=== PATIENT | male | born 1980 | race Caucasian/White ===

== ENCOUNTER 2024-10-14 09:04 | Outpatient (OUT) | payer MEDICAID, SELFPAY ==
--- OUTSIDE RECORDS SUMMARY | 2024-10-14 09:10 | XMS_ITS | Encounter Summary ---
Author Organization [facility] Address [address] [place] [address] Care Team Providers Care Sonographer Name Role Phone Cady Hilliard MD Primary Care Provider [phone] Source Comments In the event this information is protected by the Federal Confidentiality of Alcohol and Drug AbusePatient Records regulations: The Federal rules restrict any use of the information to criminally investigate or prosecute any alcohol or drug abuse patient.[facility] Encounter Details Date Type Department Care Team (Late st Contact Info) Description 09/28/2022 Patient Msg Gastroenterology [address] [id number] Sherly Bravo, Research Coordinator [id number] Treatment of Pruritus (Itching) in Primary Sclerosing Cholangitis Patients with Volixibat Social History Tobacco Use Types Packs/Day Years Used Date Smoking Tobacco: Never Passive Smoke Exposure: Never Smokeless Tobacco: Never Alcohol Use Standard Drinks/Week Comments Never 0 (1 standard drink = 0.6 oz pur e alcohol) Area Deprivation Index Answer Date Rahat rded National Score (1-100), lower number is lower ri sk 92 09/16/2022 State Score (1-10), lower number is lower risk 9 09/16/2022 Data from: https://www.neighborhoodatlas.medicine.[facility].edu/. Last address used for calculation [address] [facility] 09/16/2022 Sex and Gender Information Value Date Recorded Sex Assigned at Not on file Legal Sex Male 8:03 AM EST Gender Identity Not on file Sexual Orientation Not on file Occupation Industry Job Start Date Job End Date contractor Not on file Not on file Not on file documented as of this encounter Plan of Treatment Not on file documented as of this encounter Visit Diagnoses Not on filedocumented in this encounter Care Teams Sonographer Relationship Specialty Start Date End Date Cady Hilliard MD PCP - General Gastroenterology 06/17/22 documented as of this encounter
--- OUTSIDE RECORDS SUMMARY | 2024-10-14 09:10 | XMS_ITS | Encounter Summary ---
Author Organization [facility] Address [address] [place] [address] Care Team Providers Care Environmental Protection Specialist Name Role Phone Cady Hilliard MD Primary Care Provider [phone] Source Comments In the event this information is protected by the Federal Confidentiality of Alcohol and Drug AbusePatient Records regulations: The Federal rules restrict any use of the information to criminally investigate or prosecute any alcohol or drug abuse patient.[facility] Encounter Details Date Type Department Care Team (Late st Contact Info) Description 12/16/2022 Patient Msg Dermatology [place] [address] [place] [id number] Tonya Marie MD [address] [place] [address] treatment of hives Social History Tobacco Use Types Packs/Day Years [...] is lower risk 9 09/16/2022 Data from: https://www.neighborhoodatlas.medicine.[facility].edu/. Last address used for calculation [address] 09/16/2022 Sex and Gender Information Value Date [...] documented as of this encounter Visit Diagnoses Diagnosis Cholinergic urticaria- Primary documented in this encounter Care Teams Environmental Protection Specialist Relationship Specialty Start Date End Date Cady Hilliard MD PCP - General Gastroenterology 06/17/22 documented as of this encounter
--- OUTSIDE RECORDS SUMMARY | 2024-10-14 09:10 | XMS_ITS | Encounter Summary ---
Author Organization [facility] Address [address] [place] [address] Care Team Providers Care Welder Shielded Metal Arc Name Role Phone Cady Hilliard MD Primary Care Provider [phone] Source Comments In the event this information is protected by the Federal Confidentiality of Alcohol and Drug AbusePatient Records regulations: The Federal rules restrict any use of the information to criminally investigate or prosecute any alcohol or drug abuse patient.[facility] Encounter Details Date Type Department Care Team (Late st Contact Info) Description 09/15/2022 Patient Msg Gastroenterology [address] [phone] Provider, Ccf Appointment reminder Social History Tobacco Use Types Packs/Day Years [...] is lower risk 9 09/16/2022 Data from: https://www.neighborhoodatlas.medicine.[facility]/. Last address used for calculation [address] [facility] 09/16/2022 Sex and Gender Information Value Date [...] on filedocumented in this encounter Care Teams Welder Shielded Metal Arc Relationship Specialty Start Date End Date Cady Hilliard MD PCP - General Gastroenterology 06/17/22 documented as of this encounter
--- OUTSIDE RECORDS SUMMARY | 2024-10-14 09:11 | XMS_ITS | Clinical Summary ---
Author Organization [facility] Address [address] [place] [address] Care Team Providers Care Model Technician Name Role Phone Unavailable Primary Care Provider Unavailabl e Allergies Active Allergy Reactions Criticality Noted Date Comments Iodinated Contrast Media 10/01/2020 Iodine Unknown 06/11/2022 Tamsulosin Unknown 06/30/2022 Medications albuterol (Proventil) 2 MG tablet Take 2 mg by mouth in the morning and 2 mg in the evening and 2 mg before bedtime. Active ursodiol (Actigall) 300 MG capsule Take 300 mg by mouth in the morning and 300 mg before bedtime. Active polyethylene glycol, PEG, 3350 (Glycolax) 17 GM/SCOOP powder Take by mouth Active plecanatide (Trulance) tablet tablet Active senna-docusate (Andie-Colace) 8.6-50 MG tablet Take 1 tablet by mouth Daily Active cholestyramine (Questran) 4 g packet Take 1 packet by mouth in the morning and 1 packet at noon and 1 packet in the evening. Take with meals. Active omega-3 (FISH OIL) 300 MG capsule Take by mouth Daily Active polyethylene glycol, PEG, 3350 (Miralax) 17 g packet Take by mouth. Active predniSONE (Deltasone) 10 MG tabletIndicatio ns:Plantar fasciitis, right,Inflammat ory heel pain, right,Calcaneal spur, right,Difficult y walking 1 tablet twice daily x 7 days; followed by 1 tablet daily as directed until complete 21 tablet 09/03/2024 Active meloxicam (Mobic) 15 MG tabletIndicatio ns:Plantar fasciitis, right,Inflammat ory heel pain, right,Calcaneal spur, right,Difficult y walking Take 1 tablet (15 mg) by mouth in the morning. Take with meals. 1 tablet once daily with food as needed for comfort. 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 Encounters Date Type Department Care Team Description 09/25/2024 9:45 AM EDT Office Visit [facility] [address] [place] [address] Gagan Vicente DPM Plantar fasciitis, right (Primary Dx); Inflammatory heel pain, right; Calcaneal spur, right; Difficulty walking 09/25/2024 Abstract [facility] [address] [place] [address] Gagan Vicente, LITA 09/25/2024 Bamboo flowsheet [facility] [address] [place] [address] Gagan Vicente, [place] 09/25/2024 Travel 09/24/2024 Travel 09/03/2024 2:25 PM EDT Ancillary Procedure [facility] [address] [place] [address] 09/03/2024 1:45 PM EDT Office Visit [facility] [address] [place] [address] Gagan Vicente DPM Plantar fasciitis, right (Primary Dx); Inflammatory heel pain, right; Calcaneal spur, right; Difficulty walking 09/03/2024 Bamboo flowsheet [facility] [address] [place] [address] Gagan Vicente, [place] 09/03/2024 Travel 09/02/2024 Travel 08/30/2024 Travel from Last 3 Months Family History Medical History Relation Name Comments Diabetes Brother brother Asthma Father dad Hearing loss Father dad Arthritis Mother mom Heart disease Mother mom Hypertension Mother mom Relation Name Status Comments Brother brother Alive Father dad Alive Mother mom Alive Social History Tobacco Use Types Packs/Day Years Used Date Smoking Tobacco: Never Smokeless Tobacco: Never Tobacco Cessation:Counseling Given: Not Answered Alcohol Use Standard Drinks/Week Comments Never 0 (1 standard drink = 0.6 oz pur e alcohol) Sex and Gender Information Value Date Recorded Sex Assigned at Not on file Legal Sex Male 9:27 PM EDT Gender Identity Not on file Sexual Orientation Not on file Last Filed Vital Signs Vital Sign Reading Time Taken Comments Blood Pressure 99/58 06/14/2018 12:00 PM EST Pulse - - Temperature - - Respiratory Rate - - Oxygen Saturation - - Inhaled Oxygen Concentration - - Weight 68.9 kg (152 lb) 09/25/2024 9:49 AM EDT Height 172.7 cm (5' 8 ) 09/25/2024 9:49 AM EDT Body Mass Index 23.11 09/25/2024 9:49 AM EDT Plan of Treatment Upcoming Encounters Date Type Department Care Team (Late st Contact Info) Description 10/16/2024 2:45 PM EDT Office Visit [facility] [address] [place] [phone] Gagan Vicente, DP [address] [place] [address] Procedures Procedure Name Priority Date/Time Associated Diagnosis Comments XR FOOT 1-2 VIEWS RIGHT Routine 09/03/2024 2:22 PM EDT Plantar fasciitis, right Inflammatory heel pain, right Calcaneal spur, right Difficulty walking from Last 3 Months Results * XR foot 1 or 2 views right (09/03/2024 2:22 PM EDT) Anatomical Region Laterality Modality Lower Extremities, Foot Right [facility] Narrative 09/03/2024 2:23 PM EDT Imaging Result: 2 views right foot: Weight-bearing: Lateral and oblique: 09/03/2024: Unremarkable for acute osseous or joint pathology. Unremarkable for fracture, stress fracture, cystic, erosive or lytic changes of the calcaneus. Calcific deposition at the insertion of the Achilles tendon. No plantar enthesophyte is noted. Gagan Vicente DPM IMG XR PROCEDURES Final Resu lt from Last 3 Months Insurance [employer] [place]
--- OUTSIDE RECORDS SUMMARY | 2024-10-14 09:11 | XMS_ITS | Clinical Summary ---
Author Organization [facility] Address [address] [place] [address] Care Team Providers Care Customer Sales Representative Name Role Phone Cady Hilliard MD Primary Care Provider [phone] Allergies Active Allergy Reactions Criticality Noted Date Comments Iodine Unknown 06/11/2022 Tamsulosin Other: See Comments 06/30/2022 Very dizzy Medications polyethylene glycol 3350 (MIRALAX, GLYCOLAX) 17 gram packet Take 17 g by mouth once daily. Dissolve dose in 4 - 8 ounces of liquid and take as directed. Active cholestyramine (QUESTRAN) 4 gram packet Take 1 Packet by mouth twice daily with meals. Active dicyclomine HCl (BENTYL ORAL) Take 1 tablet by mouth every 6 hours as needed. Active albuterol sulfate 90 mcg/actuation aebs Inhale as instructed. Active ursodiol (ACTIGALL) 300 mg capsule Take 300 mg by mouth three times daily before meals. Active senna (SENOKOT) 8.6 mg tab Take 8.6 mg by mouth twice daily. Active plecanatide (TRULANCE) 3 mg tablet Take 3 mg by mouth once daily. Active albuterol HFA (PROAIR HFA) 90 mcg/actuation inhaler Inhale 2 Puffs every 4 hours as needed for wheezing/shortne ss of breath. Take as directed 18 g 06/12/2022 2:33 PM EST 3 Active tamsulosin (FLOMAX) 0.4 mg Take 1 capsule by mouth daily at bedtime. 30 capsule 06/12/2022 2:33 PM EST 3 Active Additional Information Patient not taking.Reason: Discontinued by Another Health Care Provider, Reported on 08/19/2022 Milk Thistle 500 mg cap Take 1 capsule by mouth once daily. Active fexofenadine (NICKI) 180 mg tabletIndicatio ns:Cholinergic urticaria Take 1 tablet by mouth once daily. Increase to twice daily if still getting hives. 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 Mild intermittent asthma without complication Chronic constipation 06/11/2022 Family History Medical History Relation Comments No Known Problems Father No Known Problems Mother Relation Status Comments Father Mother Alive Social History Tobacco Use Types Packs/Day Years Used Date Smoking Tobacco: Never Passive Smoke Exposure: Never Smokeless Tobacco: Never Tobacco Cessation:Counseling Given: Not Answered Alcohol Use Standard Drinks/Week Comments Never 0 (1 standard drink = 0.6 oz pur e alcohol) Area Deprivation Index Answer Date Rahat rded National Score (1-100), lower number is lower ri sk 92 09/16/2022 State Score (1-10), lower number is lower risk 9 09/16/2022 Data from: https://www.neighborhoodatlas.medicine.[facility].edu/. 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 No distress noted. notified. Pulse 81 08/19/2022 12:48 PM EDT Temperature 36.8 C (98.2 F) 08/19/2022 12:48 PM EDT Respiratory Rate 16 06/20/2022 11:3 3 AM EST Oxygen Saturation 99% 08/19/2022 12: 48 PM EDT Inhaled Oxygen Concentration - - Weight 85.6 kg (188 lb 12.8 oz) 08/19/2022 12:48 PM EDT Height 175.3 cm (5' 9 ) 08/19/2022 12:4 8 PM EDT Body Mass Index 27.88 08/19/2022 12:48 PM EDT Plan of Treatment Health Maintenance Due Date Last Done Comments Annual PCP Team Chronic Disease Visit 1998 Anxiety Screening 1998 Depression Screening 1998 HIV Screening 1998 DTaP,Tdap,Td Vaccine (1 - Tdap) 1999 Hepatitis B Vaccine (1 of 3 - 19+ 3-dose series) 1999 Lipid Screening 2015 Covid-19 Vaccine ( - season) 2023 Influenza Vaccine (Season Ended) 2024 Hepatitis C Screening Completed 08/19/2022, 023 Procedures Procedure Name Priority Date/Time Associated Diagnosis Comments HEP REMOTE PANEL BL Routine 08/19/2022 2 :23 PM EDT PSC (primary sclerosing cholangitis) from Last 3 Months or Most Recently Relevant to Health Maintenance Insurance [employer] [place] Care Teams Customer Sales Representative Relationship Specialty Start Date End Date Cady Hilliard MD PCP - General Gastroenterology 06/17/22
--- OUTSIDE RECORDS SUMMARY | 2024-10-14 09:11 | XMS_ITS | Encounter Summary ---
Author Organization [facility] tem Address [id number] [address] [place] [address] Care Team Providers Care Design Engineering Manager Name Role Phone Addy Cornell MD Primary Care Provider [phone] Encounter Details Date Type Department Care Team (Late st Contact Info) Description 09/25/2020 Telephone [facility] [address] [place] [address] Oliva Rothman RN Social History Tobacco Use Types Packs/Day Years Used Date Smoking Tobacco: Never Smokeless Tobacco: Never Alcohol Use Standard Drinks/Week Comments Never 0 (1 standard drink = 0.6 oz pur e alcohol) Childcare Answer Date Recorded Childcare Unknown 09/26/2018 Employment Answer Date Recorded Employment Unknown 09/26/2018 Sex and Gender Information Value Date Recorded Sex Assigned at Not on file Legal Sex Male 11:53 AM EDT Gender Identity Not on file Sexual Orientation Not on file COVID-19 Exposure Response Date Recorded In the last month, have you been in contact with someone who was confirmed or suspected to have Coronavirus / COVID-19? No / Unsure 09/28/2020 8:26 AM EDT documented as of this encounter Plan of Treatment Not on file documented as of this encounter Visit Diagnoses Not on filedocumented in this encounter Care Teams Design Engineering Manager Relationship Specialty Start Date End Date Addy Cornell MD PCP - General Family Medicine 11/06/22 documented as of this encounter
--- OUTSIDE RECORDS SUMMARY | 2024-10-14 09:11 | XMS_ITS | Encounter Summary ---
Author Organization [facility] Address [address] [place] [address] Care Team Providers Care Equipment Operator Name Role Phone Unavailable Primary Care Provider Unavailabl e Encounter Details Date Type Department Care Team (Late st Contact Info) Description 11/07/2022 Abstract [facility] [address] [facility] [address] [place] [address] Ángela Sheffield MD [address] [facility] [address] [place] [address] Social History Tobacco Use Types Packs/Day Years Used Date Smoking Tobacco: Never Smokeless Tobacco: Never Alcohol Use Standard Drinks/Week Comments Never 0 (1 standard drink = 0.6 oz pur e alcohol) Sex and Gender Information Value Date Recorded Sex Assigned at Not on file Legal Sex Male 9:27 PM EDT Gender Identity Not on file Sexual Orientation Not on file documented as of this encounter Plan of Treatment Upcoming Encounters Date Type Department Care Team (Late st Contact Info) Description 10/16/2024 2:45 PM EDT Office Visit [facility] [address] [place] [phone] Gagan Vicente DPM [address] [place], [place] [phone] documented as of this encounter Visit Diagnoses Not on filedocumented in this encounter
--- OUTSIDE RECORDS SUMMARY | 2024-10-14 09:11 | XMS_ITS | Clinical Summary ---
Author Organization [facility] tem Address [id number] [address] [place] [address] Care Team Providers Care Trust Operations Assistant Name Role Phone Addy Cornell MD Primary Care Provider [phone] Allergies Active Allergy Reactions Criticality Noted Date Comments Iodinated Contrast Media 10/01/2020 Medications albuterol (PROVENTIL HFA;VENTOLIN HFA) 90 mcg/actuation inhaler Inhale 2 puffs every 6 (six) hours as needed for wheezing. Active polyethylene glycol (GLYCOLAX) 17 gram/dose powder DISSOLVE 17 GRAMS INTO LIQUID ONCE DAILY AND DRINK 1 Active omeprazole (PriLOSEC) 20 mg capsule Take 20 mg by mouth daily. Active magnesium citrate (CITROMA) solution Take 296 mL by mouth once. 1300mg 1xday per patient Active omega-3 acid ethyl esters (LOVAZA) 1 gram capsule Take 1 g by mouth 2 (two) times a day. 350mg 2x day per patient Active cyproheptadine (PERIACTIN) 4 mg tablet Take 4 mg by mouth every 8 (eight) hours as needed. 1 Active ketorolac (ACULAR) 0.5 % ophthalmic solution Administer 1 drop to both eyes every 6 (six) hours. 5 mL 3 Active ibuprofen (MOTRIN) 600 mg tablet Take 1 tablet (600 mg total) by mouth every 6 (six) hours as needed for pain. Please take with food 30 tablet 3 Active Active Problems No known active problems Family History Medical History Relation Name Comments Heart disease Maternal Aunt Cancer Maternal Grandfather Lung cancer Maternal Grandfather Cancer Maternal Grandmother Heart disease Maternal Grandmother Hypertension Maternal Grandmother Melanoma Maternal Grandmother Heart disease Mother Hypertension Mother Relation Name Status Comments Brother Alive Father Alive Maternal Aunt Alive Maternal Grandfather Maternal Grandmother Mother Alive Social History Tobacco Use Types Packs/Day Years Used Date Smoking Tobacco: Never Smokeless Tobacco: Never Alcohol Use Standard Drinks/Week Comments Never 0 (1 standard drink = 0.6 oz pur e alcohol) Childcare Answer Date Recorded Childcare Unknown 09/26/2018 Employment Answer Date Recorded Employment Unknown 09/26/2018 Hunger Screening Answer Date Recorded Within the past 12 months we worried whether our food would run out before we got money to buy more. Never True 11/06/2022 Within the past 12 months th e food we bought just didn't last and we didn't have money to get more. Never True 11/06/2022 Sex and Gender Information Value Date Recorded Sex Assigned at Not on file Legal Sex Male 11:53 AM EDT Gender Identity Not on file Sexual Orientation Not on file Last Filed Vital Signs Vital Sign Reading Time Taken Comments Blood Pressure 118/89 11/06/2022 2:15 AM EDT Pulse 78 11/06/2022 2:15 AM EDT Temperature 36.6 C (97.9 F) 11/06/2022 1:02 AM EDT Respiratory Rate 18 11/06/2022 2:15 AM EDT Oxygen Saturation 98% 11/06/2022 2:15 AM EDT Inhaled Oxygen Concentration - - Weight 78.9 kg (174 lb) 11/06/2022 1:02 AM EDT Height 172.7 cm (5' 8 ) 11/06/2022 1:02 AM EDT Body Mass Index 26.46 11/06/2022 1:02 AM EDT Plan of Treatment Health Maintenance Due Date Last Done Comments Depression Screening 1992 DTaP,Tdap and Td Vaccines (1 - Tdap) 1999 Adult BMI Screening 11/07/2023 11/06/2022 Tobacco Screening 11/07/2023 11/06/2022 Influenza Vaccine 12/16/2024 Medical Devices Not on file [place] [address] [place] [address] MEDICAID Care Teams Trust Operations Assistant Relationship Specialty Start Date End Date Addy Cornell MD PCP - General Family Medicine 11/06/22
--- OUTSIDE RECORDS SUMMARY | 2024-10-14 09:11 | XMS_ITS | Encounter Summary ---
Author Organization [facility] Address [address] [place] [address] Care Team Providers Care Brake Operator Helper Name Role Phone Cady Hilliard MD Primary Care Provider [phone] Source Comments In the event this information is protected by the Federal Confidentiality of Alcohol and Drug AbusePatient Records regulations: The Federal rules restrict any use of the information to criminally investigate or prosecute any alcohol or drug abuse patient.[facility] Encounter Details Date Type Department Care Team (Late st Contact Info) Description 01/27/2023 Patient Msg Gastroenterology [address] [id number] Corey Kothari, Research Coordinator [address] [place], [place] [id number] Study Treatment of Cholestatic Pruritus in Patients with Primary Sclerosing Cholangitis with Volixibat Social History Tobacco Use Types [...] is lower risk 9 09/16/2022 Data from: https://www.neighborhoodatlas.medicine.[facility].edu/. Last address used for calculation [address] 09/16/2022 Sex and Gender Information Value [...] on filedocumented in this encounter Care Teams Brake Operator Helper Relationship Specialty Start Date End Date Cady Hilliard MD PCP - General Gastroenterology 06/17/22 documented as of this encounter
--- OUTSIDE RECORDS SUMMARY | 2024-10-14 09:11 | XMS_ITS | Encounter Summary ---
Author Organization [facility] Address [address] [facility] [place] [address] Care Team Providers Care Identification Technician Name Role Phone Unavailable Primary Care Provider Unavailabl e Encounter Details Date Type Department Care Team (Late st Contact Info) Description 09/25/2024 Abstract [facility] [address] [place] [address] Gagan Vicente DPM [address] [place], [place] [phone] Social History Tobacco Use Types Packs/Day Years [...] PM EDT Office Visit [facility] [address] [place] [address] Gagan Vicente DPM [address] [place], [place] [phone] documented as of this encounter Visit Diagnoses Not on filedocumented in this encounter
[2024-10-14 09:54] LABS: Ammonia 23 umol/L (11-32)
[2024-10-14 10:09] LABS: Alanine Aminotransferase 139 U/L (16-63); Albumin Level 3.7 g/dL (3.4-5.0); Alkaline Phosphatase 294 U/L (46-116); Anion Gap 17.5; Aspartate Amino Transferase 63 U/L (15-37); BUN Creatinine Ratio 23.7; Bilirubin Total 0.6 mg/dL (0.2-1.0); Calcium 9.4 mg/dL (8.5-10.1); Chloride 105 mmol/L (98-107); Chol HDL Ratio 3.5; Cholesterol 173 mg/dL (<=200); Estimated Average Glucose 108 mg/dL; Estimated GFR (African America >60 (>=60 mL/min/1.73m^2); Estimated GFR (Non-African Ame >60 (>=60 mL/min/1.73m^2); Free T3 3.24 pg/mL (2.18-3.98); Globulin 3.7 g/dL; Glucose 109 mg/dL (74-106); Glycohemoglobin A1C 5.4 % (4.5-6.2); HDL Cholesterol 49 mg/dL (40-60); LDL Cholesterol Calculated 106.8 mg/dL; Potassium 4.5 mmol/L (3.5-5.1); Sodium 141 mmol/L (136-145); Thyroid Stimulating Hormone 1.164 uIU/mL (0.358-3.740); Total Protein 7.4 g/dL (6.4-8.2); Triglycerides 86 mg/dL (<=150); Uric Acid 4.3 mg/dL (3.5-7.2); VLDL CHOLESTEROL 17.2 mg/dL
[2024-10-14 10:15] LABS: INR 1.02; Partial Thromboplastin Time 27.6 sec (22.3-36.2); Prothrombin Time 10.8 sec (9.0-11.6)
[2024-10-14 10:26] LABS: Basophils Percent Auto 0.4 % (0.2-2.0); Eosinophils Absolute Auto 0.5 10^3/uL (0.0-0.7); Eosinophils Percent Auto 4.9 % (0.9-7.0); Hematocrit 45.9 % (42.0-54.0); Hemoglobin 15.9 g/dL (14.0-18.0); Immature Granulocytes Abs Auto 0.05 10^3/uL (0.00-0.03); Immature Granulocytes Pct Auto 0.5 % (0.0-0.5); Lymphocytes Absolute Auto 2.4 10^3/uL (1.2-3.8); Lymphocytes Percent Auto 25.7 % (20.5-60.0); Mean Corpuscular HGB Conc 34.6 g/dL (29.9-35.2); Mean Corpuscular Hemoglobin 31.4 pg (25.9-34.0); Mean Corpuscular Volume 90.5 fL (80.0-94.0); Mean Platelet Volume 10.8 fL (9.5-13.5); Monocytes Absolute Auto 1.3 10^3/uL (0.3-0.8); Monocytes Percent Auto 14.3 % (1.7-12.0); Neutrophils Percent Auto 54.2 % (43.0-75.0); Platelet Count 225 10^3/uL (150-450); Red Blood Count 5.07 10^6/uL (4.70-6.10); Red Cell Distribution Width 12.7 % (11.0-15.0); White Blood Count 9.3 10^3/uL (4.0-11.0)
[2024-10-14 10:52] LABS: Prostate Specific Antigen Scrn 1.51 ng/mL (<=4.00)
== END 2024-10-14 09:05 | disposition home or self-care (01) ==
LOC: LAB 09:08
PROVIDERS: PCP Family Medicine; Visit Provider Family Medicine
DX: Z00.00 Encounter for general adult medical examination without abnormal findings (principal); H66.90 Otitis media, unspecified, unspecified ear; K83.01 Primary sclerosing cholangitis; R73.09 Other abnormal glucose; R53.83 Other fatigue; Z12.5 Encounter for screening for malignant neoplasm of prostate
CPT/HCPCS: 36415; 80053; 80061; 82140; 83036; 84436; 84443; 84481; 84550; 85025; 85610; 85730; G0103

== ENCOUNTER 2024-11-29 17:59 | Emergency (ER) | payer MEDICAID, SELFPAY ==
[2024-11-29 18:05] VITALS: BP 129/84; PULSE 93; TEMP 36.8; O2SAT 97; BMI 26.6
--- NOTE | 2024-11-29 18:18 | ECG_ITS ---
The [facility] Test Date: 2024-11-29 Pat Name: KIRK BURGER Department: Room: - Gender: Male Revival Clerk: : 1980 Requested By: [id number] Order Number: [id number] Reading MD: TIAN DAILEY M.D. Measurements Intervals [place] Rate: 84 P: 43 KS: 150 QRS: 54 QRSD: 68 T: 19 QT: 348 QTc: 389 Interpretive Statements 1100 Sinus rhythm 1570 with occasional ventricular premature complexes 4068 Nonspecific Twave abnormality 9140 abnormal rhythm ECG Compared to ECG 06/07/2021 11:19:46 Ventricular premature complex(es) now present Electronically Signed On 11-29-2024 20:54:18 EDT by TIAN DAILEY M.D.
--- NOTE | 2024-11-29 18:18 | XR_ITS ---
The [address] [address] Patient Name: KIRK BURGER MRN: [id number] date: 1980 Sex: M Assigned Patient Location: ER Current Patient Location: ER Accession/Order Number: [id number] Exam Date: 11/29/2024 18:47 Report Date: 11/29/2024 18:48 At the request of: SAROJ GUSTAFSON NP Procedure: XR soft tissue neck AP and lateral Soft Tissues of the Neck HISTORY: Assessment for glass in throat The epiglottis and aryepiglottic folds are normal. Nasopharynx, oropharynx and hypopharynx are patent. No prevertebral or other soft tissue swelling identified. No subcutaneous air seen. No radiodense foreign body Bony structures are intact. XR/XR soft tissue neck IMPRESSION: No radiodense foreign body Impression dictated by: Alpesh Marx M.D. 11/29/2024 6:48 PM Dictation [facility] Electron[facility] authenticated by: [id number] Y Date: 11/29/2024 18:48
--- NOTE | 2024-11-29 18:19 | ED_ITS ---
HPI HPI - General Adult General Chief complaint: Skin/Abscess/Foreign Body Stated complaint: FB IN THROAT, SORE THROAT Time Seen by Provider: 11/29/24 18:01 Source: patient Mode of arrival: walk-in Limitations: no limitations History of Present Illness HPI narrative: The patient is a 44-year-old male who presents to the ER today for evaluation of concerns for possible foreign body ingestion. Patient states he was drinking out of a cup and believes a piece of glass broke off the bottom of the cup and he may have swallowed this. He reports the chunk to be approximately 3 hair lenghts thick and to be about 1cm in long. He mentions he noticed this piece to be missing about shelter drinking through the milk and states he felt something sharp along the left side of his throat. He does endorse some mild discomfort with swallowing and additionally endorses a mild focal area of discomfort in his chest with swallowing. No chest pain or shortness of breath. He denies any difficulty breathing or inability to maintain secretions. No abdominal pain or nausea/vomiting. He states he took 2 Aleve tablets for a pain in his foot earlier and reports no improvement in the throat or chest discomfort so proceeded to the ER. Related Data Allergies Allergy/AdvReac Type Severity Reaction Status Date / Time tamsulosin (From Flomax) Allergy Mild cannot walk Verified 11/29/24 18:09 contrast dye Allergy Intermediate hypoxia Uncoded 11/29/24 18:09 Review of Systems ROS Status of ROS 10 or more systems reviewed and unremark able except as noted in history and below PFSH PFSH Social History Little interest or pleasure in doing things: not at all Feeling down, depressed, or hopeless: not at all Exam Narrative Exam Narrative: Constituational: Awake/ alert, no apparent distress, well hydrated HENMT: normocephalic, external ears normal, moist oral mucous membranes and oropharynx normal, no stridor no trismus, uvula midline, maintaining secretions appropriately Eyes: EOMI and conjunctivae normal Neck: ROM intact Chest: inspection of chest normal, + focal and fingertip length discomfort to medial/upper left side of chest Respiratory: Normal respiratory effort, clear to auscultation bilaterally Cardio: regular rate and regular rhythm GI: soft to palpation and non-tender Back: nontender MSK: ROM intact, +NVI Skin: no rashes or petechiae Neuro: no focal deficits Psych: mental status grossly normal Constitutional Vital Signs, click to edit/add: Last Vital Signs Temp 98.3 F 11/29/24 18:05 Pulse 93 H 11/29/24 18:05 Resp 16 11/29/24 18:05 BP 129/84 11/29/24 18:05 Pulse Ox 97 11/29/24 18:05 O2 Del Method Room Air 11/29/24 18:05 Course Vital Signs Vital signs: Vital Signs Temperature 98.3 F 11/29/24 18:05 Pulse Rate 93 H 11/29/24 18:05 Respiratory Rate 16 11/29/24 18:05 Blood Pressure 129/84 11/29/24 18:05 Pulse Oximetry 97 11/29/24 18:05 Oxygen Delivery Method Room Air 11/29/24 18:05 Temperature 98.3 F 11/29/24 18:05 Pulse Rate 93 H 11/29/24 18:05 Respiratory Rate 16 11/29/24 18:05 Blood Pressure 129/84 11/29/24 18:05 Pulse Oximetry 97 11/29/24 18:05 Oxygen Delivery Method Room Air 11/29/24 18:05 Medical Decision Making Medical Records Medical records reviewed: Yes I reviewed the patient's medical records ECG Data Attestation: I personally reviewed and interpreted this ECG as follows: (SR with occasional PVC, HR 84, no acute/ischemic changes) Discharge Plan Discharge Chief Complaint: Skin/Abscess/Foreign Body Clinical Impression: Foreign body sensation in throat Patient Disposition: Home, Self-Care Print Language: Vietnamese Additional Instructions: May follow-up with gastroenterology for reevaluation from the emergency department as discussed. Referrals: Randy Maria MD [Primary Care Provider, Family Practice] - 1 week Rachel Butler DO [Physician] - 1 week
--- NOTE | 2024-11-29 18:30 | XR_ITS ---
The [place] [id number] Patient Name: KIRK BURGER MRN: [id number] date: 1980 Sex: M Assigned Patient Location: ER Current Patient Location: ER Accession/Order Number: [id number] Exam Date: 11/29/2024 18:40 Report Date: 11/29/2024 18:47 At the request of: QAMAR SANDOVAL MD Procedure: XR chest 1V Plain film chest Single view HISTORY: Sore throat. The cervical os potentially in throat. COMPARISON: None FINDINGS: SUPPORT DEVICES: None POSTSURGICAL CHANGES: None HEART: Within normal limits PULMONARY MICHAEL: Within normal limits MEDIASTINUM: Unremarkable LUNGS AND PLEURA: No acute lung process, pleural effusion or pneumothorax identified. BONY STRUCTURES: Intact ADDITIONAL FINDINGS no radiodense foreign body XR/XR chest 1V IMPRESSION: No acute process. Impression dictated by: Alpesh Marx M.D. 11/29/2024 6:47 PM Dictation [facility] Electronically authenticated by: [id number] Y Date: 11/29/2024 18:47
== END 2024-11-29 19:48 | disposition home or self-care (01) ==
PROVIDERS: Emergency Provider Emergency Medicine; PCP Family Medicine
DX: R09.A2 Foreign body sensation, throat (principal); J02.9 Acute pharyngitis, unspecified
CPT/HCPCS: 70360; 71045; 93005; 99284

== ENCOUNTER 2024-12-03 12:06 | Outpatient (OUT) | payer MEDICAID, SELFPAY ==
--- OUTSIDE RECORDS SUMMARY | 2024-10-14 16:41 | XMS_ITS ---
Author Organization [facility] [place] Address [address] [place] [address] Care Team Providers Care Pediatric Nurse Practitioner Name Role Phone Sameer Maria Primary Care Provider REASON FOR VISIT lab results Encounters Encounter Location Date Provider Diagnosis [facility] [address] [place] [address] 10/14/2024 Sameer Maria Plan Of Treatment No Information Progress Notes * Lucille ESCALERAOB: 0 (44 yo M)Acc No.[id number]:10/14/2024 Patient: Brayden KERNSolas :1980 A ge:44 Y S ex:Male Address:[address] [place] [address], [id number] * true * Date: Generated for Printi ng/Faxing/eTransmitting on: 0 12/03/2024 12:09 PM EDT
--- OUTSIDE RECORDS SUMMARY | 2024-11-28 08:45 | XMS_ITS | Encounter Summary ---
Author Organization [facility] Healthcare Address [address] [place] [address] Care Team Providers Care Change Management Specialist Name Role Phone Unavailable Primary Care Provider Unavailabl e Reason for Visit * Reason Comments Toe Problem Established patient presents today for injury to right 2nd toe. Patient states he stubbed his toe into the wall last Monday (11/22/24). Patient did not seek medical attention, but states it hasn't gotten any pain, he is still having pain and the toe appears bruised. SS: 9 Encounter Details Date Type Department Care Team (Late st Contact Info) Description 11/28/2024 8:45 AM EDT Office Visit [facility] [address] [place] [phone] Rachael Pittman, DPM [address] [place], [place] [id number] Injury of second toe, right, initial encounter (Primary Dx); Closed fracture of phalanx of right second toe, initial encounter; Pain of toe of right foot Social History Tobacco Use Types Packs/Day Years [...] on file documented as of this encounter Last Filed Vital Signs Vital Sign Reading Time Taken Comments Blood Pressure - - Pulse - - Temperature - - Respiratory Rate - - Oxygen Saturation - - Inhaled Oxygen Concentration - - Weight 68.9 kg (152 lb) 11/28/2024 8:46 AM EDT Height 172.7 cm (5' 8 ) 11/28/2024 8:46 AM EDT Body Mass Index 23.11 11/28/2024 8:46 AM EDT documented in this encounter Progress Notes * Rachael Obed Pittman, DPM - 11/28/2024 8:45 AM EDT Images from the original note were not included. Subjective Patient ID: Toni Escalera is a 44 y.o. male who presents for Toe Problem (Established patient presents today for injury to right 2nd toe. Patient states he stubbed his toe into the wall last Monday (11/22/24). Patient did not seek medical attention, but states it hasn't gotten any pain, he is still having pain and the toe appears bruised. SS: 9). HPI Patient presents complaining of painful right 2nd toe. He states on 11/22/2024 he stubbed the toe. He noticed significant swelling bruising and pain after the injury. He did not seek any medical attention. The pain has persisted therefore he followed up here. Review of Systems Medications Current Outpatient Medications: albuterol (Proventil) 2 MG tablet, Take 2 mg by mouth in the morning and 2 mg in the evening and 2 mg before bedtime., Disp: , Rfl: cholestyramine (Questran) 4 g packet, Take 1 packet by mouth in the morning and 1 packet at noon and 1 packet in the evening. Take with meals., Disp: , Rfl: meloxicam (Mobic) 15 MG tablet, Take 1 tablet (15 mg) by mouth in the morning. Take with meals. 1 tablet once daily with food as needed for comfort., Disp: 30 tablet, Rfl: 2 omega-3 (FISH OIL) 300 MG capsule, Take by mouth Daily, Disp: , Rfl: plecanatide (Trulance) tablet tablet, , Disp: , Rfl: polyethylene glycol, PEG, 3350 (Glycolax) 17 GM/SCOOP powder, Take by mouth, Disp: , Rfl: predniSONE (Deltasone) 10 MG tablet, 1 tablet twice daily x 7 days; followed by 1 tablet daily as directed until complete, Disp: 21 tablet, Rfl: 0 senna-docusate (Andie-Colace) 8.6-50 MG tablet, Take 1 tablet by mouth Daily, Disp: , Rfl: ursodiol (Actigall) 300 MG capsule, Take 300 mg by mouth in the morning and 300 mg before bedtime.,Disp: , Rfl: polyethylene glycol, PEG, 3350 (Miralax) 17 g packet, Take by mouth., Disp: , Rfl: Allergies Iodinated contrast media, Iodine, and Tamsulosin Past Surgical History Past Surgical History: Procedure Laterality Date CT GUIDED PERCUTANEOUS BIOPSY LIVER 10/01/2020 CT GUIDED PERCUTANEOUS BIOPSY LIVER 10/01/2020 TONSILLECTOMY Family History Family History Problem Relation Name Age of Onset Hypertension Mother mom Arthritis Mother mom Heart disease Mother mom Asthma Father dad Hearing loss Father dad Diabetes Brother brother Diabetes Brother brother Objective Physical Exam Constitutional: Appearance: Normal appearance. HENT: Head: Normocephalic and atraumatic. Cardiovascular: Comments: Pedal pulses: DP 2/4 bilateral, PT 2/4 bilateral. Skin temp is warm to warm. Varicosities: absent Hair growth: present Mild localized edema right 2nd digit Pulmonary: Effort: Pulmonary effort is normal. Musculoskeletal: Right lower leg: No edema. Left lower leg: No edema. Comments: ROM: AJ and STJ ROM are normal and pain free. MUSCLE STRENGTH: Dorsiflexion, plantarflexion, inversion, eversion are 5/5 b/l. PAIN: extreme pain with palpation to the right 2nd digit, most are long the proximal phalanx. Mild tenderness at the 2nd MTPJ dorsally and plantarly DEFORMITY: no gross deformities noted R 2nd digit Skin: General: Skin is warm and dry. Capillary Refill: Capillary refill takes 2 to 3 seconds. Findings: Bruising present. No erythema. Comments: SKIN FINDINGS: Webspaces are clean and dry. Skin texture and turgor normal. Mild residualecchymosis noted right 2nd digit HYPERKERATOTIC LESION: none NAIL PATHOLOGY: none Neurological: Mental Status: He is alert and oriented to person, place, and time. Comments: Light touch sensation intact XR foot 3+ views right Imaging Result: 3 views foot: AP, MO, and lateral of the right foot were taken and show complete oblique fracture of the proximal phalanx 2nd digit. Alignment is satisfactory, however on the lateral view there is dorsal angulation noted of the distal fragment of the proximal phalanx Assessment/Plan ICD-10-CM 1. Injury of second toe, right, initial encounter S99.921A XR foot 3+ views right 2. Closed fracture of phalanx of right second toe, initial encounter S92.501A XR foot 3+ views right 3. Pain of toe of right foot M79.674 Patient was examined and evaluated.Reviewed radiographic and clinical findings with the pt. Explained diagnosis of right 2nd proximal phalanx fracture. (Date of injury 11/22/24). Reviewed that normal bone heals in 4-6 weeks. Recommended immobilization in surgical shoe. Pt tried one and was still having discomfort with ambulation, so tried on CAM walker. He was more comfortable in this. Patient was fitted today for a below knee walking cast, cam walker. At the time of dispensing it was suitable and not substandard. Patient was instructed in the application and removal of this device. It fit well. ABN form discussed, presented, explained and then signed by patient. Encouraged to do little walking and elevate LE. Rest, ice, elevate. I also instructed the patient on how to darryn splint the toe to the 3rd digit. Recommended time off of work until his next appointment in 4 weeks. 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 Take NSAIDs as needed (hx of liver disease). Will return to the office in 4 weeks for recheck and possibly new radiographs. This note was created with the assistance of a speech recognition program. While intending to generate a timely document that accurately reflects the content of the visit, no guarantee can be provided that every grammatical or spelling mistake has been or will be identified or corrected. Thank you for your understanding. Rachael Pittman DPM documented in this encounter Plan of Treatment Upcoming Encounters Date Type Department Care Team (Late st Contact Info) Description 12/24/2024 8:45 AM EDT Office Visit [facility] [address] [place] [phone] Rachael Pittman DPM [address] [place] [place], [place] [id number] documented as of this encounter Procedures Procedure Name Priority Date/Time Associated Diagnosis Comments XR FOOT 3+ VIEWS RIGHT Routine 11/28/2024 9:16 AM EDT Injury of second toe, right, initial encounter Closed fracture of phalanx of right second toe, initial encounter documented in this encounter Results * XR foot 3+ views right (11/28/2024 9:16 AM EDT) Anatomical Region Laterality Modality Lower Extremities, Foot Right Radiogra [facility] Imaging Narrative 11/28/2024 9:53 AM EDT Imaging Result: 3 views foot: AP, MO, and lateral of the right foot were taken and show complete oblique fracture of the proximal phalanx 2nd digit. Alignment is satisfactory, however on the lateral view there is dorsal angulation noted of the distal fragment of the proximal phalanx us Rachael Pittman DPM IMG XR PROCEDURES Final Res ult documented in this encounter Visit Diagnoses Diagnosis Injury of second toe, right, initial encounter- Primary Closed fracture of phalanx of right second toe, initial encounter Pain of toe of right foot documented in this encounter
--- OUTSIDE RECORDS SUMMARY | 2024-11-28 09:20 | XMS_ITS | Encounter Summary ---
Author Organization [facility] Address [address] [place] [address] Care Team Providers Care Parts Cataloger Name Role Phone Unavailable Primary Care Provider Unavailabl e Encounter Details Date Type Department Care Team (Late st Contact Info) Description 11/28/2024 9:20 AM EDT Ancillary Procedure [facility] [address] [place] [phone] Social History Tobacco Use Types Packs/Day Years [...] Description 12/24/2024 8:45 AM EDT Office Visit [facility] [address] [place] [phone] Rachael Pittman, DPM [address] [place], [place] [phone] documented as of this encounter Procedures Procedure [...] Laterality Modality Lower Extremities, Foot Right Radiogra [facility] Imaging Narrative 11/28/2024 9:53 AM [...] ult documented in this encounter Visit Diagnoses Not on filedocumented in this encounter
--- OUTSIDE RECORDS SUMMARY | 2024-11-30 12:33 | XMS_ITS ---
Author Organization [facility] [place] Address [address] [place] [address] Care Team Providers Care Geriatric Physician Name Role Phone Sameer Maria Primary Care Provider [phone] REASON FOR VISIT ER f/u Encounters Encounter Location Date Provider [facility] [address] [place] [address] 11/30/2024 Sameer Maria Plan Of Treatment No Information Progress Notes * Lucille ESCALERAOB: 0 (44 yo M)Acc No.[id number]:11/30/2024 Patient: Kriss AVILA Neftali :1980 A ge:44 Y S ex:Male Address:[address] [place] [address], [address] * true * Date: Generated for Printi ng/Faxing/eTransmitting on: 0 12/03/2024 12:10 PM EDT
--- OUTSIDE RECORDS SUMMARY | 2024-12-03 04:30 | XMS_ITS ---
Author Organization [facility] [place] Address [address] [place] [address] Care Team Providers Care Measurer Name Role Phone Sameer Maria Primary Care Provider [phone] Allergies Allergen (clinical drug ingredient) Drug/Non Drug Allergy documented on EMR Reaction Allergy Type Onset Date Status contrast dye (uncoded) Unknown Allergy Active tamsulosin Flomax couldnt walk Drug Allergy Act sarai REASON FOR VISIT ER F/U- couple days go- drank out of a glass that was broken- had pain in esophagus- told nothing, now pain into left side Medications Medication SIG (Take, Route, Frequency, Duration) Notes Start Date End Date Status Rikki 250 250mg Active Albuterol Sulfate HFA 108 (90 Base) MCG/ACT 2 puff as needed Inhalation every 4 hrs 10/10/2024 Active Polyethylene Glycol Active metroNIDAZOLE 500 MG 1 tablet Orally Thr ee times a day for 10 days 12/03/2024 Active Senexon-S Active Fish Oil Active Fexofenadine HCl 180 MG 1 tablet Swallow whole with water; do not take with fruit juices. Orally Once a day 10/10/2024 Active Ergocalciferol 1.25 MG (05798 UT) 1 capsule Orally one weekly 10/10/2024 Active Ciprofloxacin HCl 500 MG 1 tablet Orally every 12 hrs for 10 days 12/03/2024 Active Social History Tobacco Use: Social History Observation Description Date Details (start date - stop date) Never Smoker NA - NA Tobacco Control (Standard) Question Answer Notes Tobacco use: Nonsmoker Problems Problem Type SNOMED Code ICD Code Onset Dates Problem Status W/U Status Risk Notes Problem Left lower quadrant pain (649185101) Left lower quadrant pain (R10.32) Active confirmed Problem Migraine (G43.909) Active confirmed Vital Signs Weight 202.2 lbs 12/03/2024 Height 69 in 12/03/2024 Blood pressure systolic 110 mm Hg 12/04/19 25 Blood pressure diastolic 82 mm Hg 025 BMI 29.86 kg/m2 12/03/2024 Encounters Encounter Location Date Provider Diagnosis [facility] [address] [place] [address] 12/03/2024 Sameer Hoy Left lower quadrant pain R10.32 and Migraine G43.909 Assessments Encounter Date Diagnosis (ICD Code) Assessment Notes Treatment Notes Treatment Clinical Notes Section Notes 12/03/2024 Left lower quadrant pain (ICD-10 - R10.32) LLQ tenderness - rebound tenderness - and pain in LLQ with palpation RLQ 12/03/2024 Migraine (ICD-10 - G43.909) Plan Of Treatment Medication Medication Name Sig Start Date Stop Date Notes metroNIDAZOLE 500 MG 1 tablet Orally Thr ee times a day for 10 days 12/03/2024 Ciprofloxacin HCl 500 MG 1 tablet Orally every 12 hrs for 10 days 12/03/2024 Treatment Notes Assessment Notes Left lower quadrant pain LLQ tenderness - rebound tenderness - and pain in LLQ with palpation RLQ Pending Test Test Name Order Date CT ABD and PELVIS WO CON 12/03/2024 MRI BRAIN WO CON 12/03/2024 Progress Notes * Meron ESCALERAsDOB: 0 (44 yo M)Acc No.[id number]:12/03/2024 UNLOCKED PROGRESS NOTE Progress Note Patient: Neftali KERNS Provider: Kathryn Maria ([facility])MD :1980 A ge:44 Y S ex:Male Date:12/03/2024 Address:[address] [place] [address], [facility] Check In:08:26 AM ESTCheck O ut:08:57 AM EST Subjective: * Chief Complaints: * 1 . ER F/U- couple days go- drank out of a glass that was broken- had pain in esophagus- told nothing. 2. Now pain into left side. * HPI: G eneral: Now wtih LLQ tendnernss - eating seems to make owrse - always has some loose stools with the miralax no fevers - no chills Daily headchae - not had MRI - left sided - progressivley worse - nothing helping - needs MRI. * ROS: E ENT: hearing changes d enies. v isual changes d enies.?non-healing mouth sores d enies. s wollen glands or neck lumps d enies. h oarseness d enies. s ore throat d enies. d ifficulty swallowing d enies. n ose bleeds d enies. n vega congestion d enies. e ar ache d enies. e ar discharge?denies. r inging in ears d enies. l ight sensitivity d enies. e ye pain d enies. b lurring d enies. e ye irritation d enies. d ouble vision d enies.?vision loss d enies. G eneral/Constitutional: Sweats: D enies. F atigue d enies. S leep problems d enies. A norexia d enies. M alaise d enies. W eight loss d enies.?Fatigue or Weakness d enies. F ever or Chills d enies. C ardiovascular: Shortness of Breath w/lying flat d enies. L ightheadedness/dizziness d enies. C hest tightness/ heavy pressure d enies. S welling of legs, ankles, or feet d enies. W aking up with shortness of breath d enies. C hest pain denies. P alpitations d enies. W eight gain d enies. R espiratory: Chronic or frequent cough d enies. C oughing up blood?denies. D ifficulty breathing d enies. P roductive cough d enies. S noring?denies. S hortness of breath that awakens from sleep (PND) d enies. C hest pain d enies. S putum production d enies. W heezing d enies. M usculoskeletal: Joint pain d enies. J oint Fluid d enies. B ack pain d enies. K nee pain d enies. N china pain d enies. J oint Stiffness d enies. M uscle cramps d enies. W eakness of muscles d enies. A rthritis d enies. M uscle aches d enies. P ain in shoulder(s) d enies. S wollen joints d enies. * Medical History: P SC (primary sclerosing cholangitis), Asthma. * Surgical History: T eeth Removal . * Hospitalization/Major Diagno stic Procedure: L iver- obs , Tonsillectomy . * Family History: F ather: , asthma, diagnosed with Unspecified essential hypertension. M other: alive, Thyroid Disease, osteoporosis, asthma, IBS, diagnosed with Unspecified essential hypertension, Unspecified heart disease. B rother(s): alive, seizure disorder, diagnosed with Diabetes mellitus without mention of complication, type II or unspecified type, not stated as uncontrolled. 1 brother(s) . . * Social History: T obacco Use: T obacco Control (Standard) T obacco use: N onsmoker * Medications: T aking Albuterol Sulfate HFA 108 (90 Base) MCG/ACT Aerosol Solution 2 puff as needed Inhalation every 4 hrs , Taking Ergocalciferol 1.25 MG (24711 UT) Capsule 1 capsule Orally one weekly , Taking Fexofenadine HCl 180 MG Tablet 1 tablet Swallow whole with water; do not take with fruit juices. Orally Once a day , Taking Fish Oil , Taking Polyethylene Glycol , Taking Senexon-S , Taking Rikki 250 , Notes to Pharmacist: 250mg, Discontinued Alendronate Sodium 70 MG Tablet 1 tablet 30 minutes before the first food, beverage or medicine of the day with plain water Orally once weekly , Discontinued Amoxicillin-Pot Clavulanate 875-125 MG Tablet 1 tablet Orally every 12 hrs , Discontinued Budesonide 3 MG Capsule Delayed Release Particles 1 capsule Orally once daily , Discontinued IBgard(Peppermint Oil) 90 MG Capsule Extended Release 2 capsules Orally twice daily , Discontinued Naproxen 500 MG Tablet 1 tablet with food or milk as needed Orally every 12 hrs , Discontinued Questran(Cholestyramine) 4 GM/DOSE Powder 1 scoop mixed with water or non-carbonated drink Orally Once a day , Discontinued Trulance(Plecanatide) 3 MG Tablet 1 tablet Orally Once a day , Medication List reviewed and reconciled with the patient * Allergies: F chey: couldnt walk - Allergy, contrast dye: Allergy. Objective: * Vitals: W t:202.2lbs, Ht: 69 in, BP:110/82mm Hg, BMI:29.86Index, Ht-cm: 175.26 cm, Wt-k.72 kg. * Examination: P hysical Exam: GENERAL: w ell developed, well nourished, in no acute distress. HEAD: n ormocephalic/atraumatic. EYES: p upils equal, round and reactive to light, conjunctivae and sclerae normal. EARS: n o deformity or lesion of external ear, canals and TM appear normal bilaterally, TM's intact, not inflamed with normal light reflex, hearing grossly normal to conversational speech. NOSE: n o deformity, discharge, inflammation, or lesions.? MOUTH: m ucous membranes moist, normal oropharynx and posterior pharynx without lesions or exudates, tongue normal, dentition normal. NECK: n china supple, no masses or palpable cervical nodes, trachea midline, thyroid without nodules, masses, tenderness, or enlargement. CHEST: n o chest wall deformity, no chest wall tenderness.? LUNGS: n ormal respiratory effort and clear to auscultation, no wheezes, rales, or rhonchi, good air exchange. CARDIO: r egular rate and rhythm, normal S1 and S2, nor murmur, rub, or gallop. PULSES: n ormal capillary refill. ABDOMEN: L LQ tenderness - rebound tenderness - and pain in LLQ with palpation RLQ . MUSCULOSKELETAL: n o deformity or scoliosis noted, normal range of motion, joints normal, no erythema, edema, effusion, or ecchymosis. EXTREMITY: n o clubbing, cyanosis, edema, or deformity with normal ROM in both upper and lower bilateral extremities. NEUROLOGIC: g rossly normal. SKIN: n o rashes, ulcerations, or suspicious lesions. LYMPH NODES: n o cervical adenopathy, nodes normal. MENTAL STATUS: a lert and oriented x3, normal mood and affect. Assessment: * Assessment: 1. L eft lower quadrant pain - R10.32 (Primary) 2 . M igraine - G43.909? Plan: * Treatment: Notes: LLQ tenderness - rebound tenderness - and pain in LLQ with palpation RLQ ??2.?Migraine?Imaging: MRI BRAIN WO CON * Procedure Codes: 3 074F DIABETIC SYSTOLIC BP, 3079F DIABETIC DIASTOLIC BP * * Electronic signature of Sameer Maria MD, [id number] on 12/03/2024 at 12:09 PM EDT Sign off status: Pending Visit Status: C HK (Check Out) * Provider: Kathryn Maria ([facility])MD Date: 0 12/03/2024 Generated for Printi ng/Faxing/eTransmitting on: 0 12/03/2024 12:09 PM EDT History and Physical Notes * HPI (History of Present Illness) Category Sub-Category Detail Notes Category Not es General Now wtih LLQ tendnernss - eating seems to make owrse - always has some loose stools with the miralax no fevers - no chills Daily headchae - not had MRI - left sided - progressivley worse - nothing helping - needs MRI Examination Category Sub-Category Detail Notes Category Not es Physical Exam GENERAL: well developed, well nourished, in no acute distress HEAD: normocephalic/atraum atic EYES: pupils equal, round and reactive to light, conjunctivae and sclerae normal EARS: no deformity or lesi on of external ear, canals and TM appear normal bilaterally, TM's intact, not inflamed with normal light reflex, hearing grossly normal to conversational speech NOSE: no deformity, discha rge, inflammation, or lesions MOUTH: mucous membranes sherri st, normal oropharynx and posterior pharynx without lesions or exudates, tongue normal, dentition normal NECK: neck supple, no mass es or palpable cervical nodes, trachea midline, thyroid without nodules, masses, tenderness, or enlargement CHEST: no chest wall deform ity, no chest wall tenderness LUNGS: normal respiratory e ffort and clear to auscultation, no wheezes, rales, or rhonchi, good air exchange CARDIO: regular rate and rhy thm, normal S1 and S2, nor murmur, rub, or gallop PULSES: normal capillary ref ill ABDOMEN: LLQ tenderness - arnulfo ound tenderness - and pain in LLQ with palpation RLQ RECTAL: MUSCULOSKELETAL: no deformity or scol iosis noted, normal range of motion, joints normal, no erythema, edema, effusion, or ecchymosis EXTREMITY: no clubbing, cyanosi s, edema, or deformity with normal ROM in both upper and lower bilateral extremities NEUROLOGIC: grossly normal SKIN: no rashes, ulceratio ns, or suspicious lesions LYMPH NODES: no cervical adenopat hy, nodes normal MENTAL STATUS: alert and oriented x 3, normal mood and affect
--- OUTSIDE RECORDS SUMMARY | 2024-12-03 12:09 | XMS_ITS | Encounter Summary ---
Author Organization [facility] Healthcare Address [address] [place] [address] Care Team Providers Care Roof Technician Name Role Phone Unavailable Primary Care Provider Unavailabl e Encounter Details Date Type Department Care Team (Late st Contact Info) Description 10/30/2024 Abstract [facility] [address] [place] [phone] Gagan Vicente DPM [address] [place], [place] [phone] Social History Tobacco Use Types Packs/Day Years [...] 12/24/2024 8:45 AM EDT Office Visit [facility] [address] [place] [phone] Rachael Pittman DPM [address] [place], [place] [phone] documented as of this encounter Visit Diagnoses Not on filedocumented in this encounter
--- OUTSIDE RECORDS SUMMARY | 2024-12-03 12:09 | XMS_ITS | Encounter Summary ---
Author Organization [facility] Address [address] [place] [address] Care Team Providers Care Management Aide Name Role Phone Cady Hilliard MD Primary Care Provider [phone] Source Comments In the event this information is protected by the Federal Confidentiality of Alcohol and Drug AbusePatient Records regulations: The Federal rules restrict any use of the information to criminally investigate or prosecute any alcohol or drug abuse patient.[facility] Encounter Details Date Type Department Care Team (Late st Contact Info) Description 09/28/2022 Patient Msg Gastroenterology [address] [id number] Sherly Bravo, Research Coordinator [id number] Treatment of [...] is lower risk 9 09/16/2022 Data from: https://www.neighborhoodatlas.medicine.[facility].edu/. Last address used for calculation [address] [facility] 09/16/2022 Sex and Gender Information [...] on filedocumented in this encounter Care Teams Management Aide Relationship Specialty Start Date End Date Cady Hilliard MD PCP - General Gastroenterology 06/17/22 documented as of this encounter
--- OUTSIDE RECORDS SUMMARY | 2024-12-03 12:09 | XMS_ITS | Encounter Summary ---
Author Organization [facility] Address [address] [place] [address] Care Team Providers Care Tufting Creeler Name Role Phone Unavailable Primary Care Provider Unavailabl e Encounter Details Date Type Department Care Team (Late st Contact Info) Description 11/28/2024 Bamboo flowsheet [facility] [address] [place] [address] Rachael Pittman DPM [address] [place], [place] [phone] Social History Tobacco Use Types Packs/Day Years [...] Office Visit [facility] [address] [place] [phone] Rachael Pittman DPM [address] [place], [place] [phone] documented as of this encounter Visit Diagnoses Not on filedocumented in this encounter
--- OUTSIDE RECORDS SUMMARY | 2024-12-03 12:09 | XMS_ITS | Encounter Summary ---
Author Organization [facility] Address [address] [place] [address] Care Team Providers Care Pressure Test Operator Name Role Phone Cady Hilliard MD Primary Care Provider [phone] Source Comments In the event this information is protected by the Federal Confidentiality of Alcohol and Drug AbusePatient Records regulations: The Federal rules restrict any use of the information to criminally investigate or prosecute any alcohol or drug abuse patient.[facility] Encounter Details Date Type Department Care Team (Late st Contact Info) Description 12/16/2022 Patient Msg Dermatology [place] [address] [place] [phone] Tonya Marie MD [address] [place] [address] treatment of hives Social History Tobacco [...] risk 9 09/16/2022 Data from: https://www.neighborhoodatlas.medicine.[facility].edu/. Last address used for calculation [address] 09/16/2022 Sex and Gender Information Value [...] Primary documented in this encounter Care Teams Pressure Test Operator Relationship Specialty Start Date End Date Cady Hilliard MD PCP - General Gastroenterology 06/17/22 documented as of this encounter
--- OUTSIDE RECORDS SUMMARY | 2024-12-03 12:09 | XMS_ITS | Encounter Summary ---
Author Organization [facility] Address [address] [place] [address] Care Team Providers Care Customer Support Analyst Name Role Phone Cady Hilliard MD Primary Care Provider [phone] Source Comments In the event this information is protected by the Federal Confidentiality of Alcohol and Drug AbusePatient Records regulations: The Federal rules restrict any use of the information to criminally investigate or prosecute any alcohol or drug abuse patient.[facility] Encounter Details Date Type Department Care Team (Late st Contact Info) Description 09/15/2022 Patient Msg Gastroenterology [address] [phone] Provider, [facility] Appointment reminder Social History Tobacco [...] 9 09/16/2022 Data from: https://www.neighborhoodatlas.medicine.[facility]/. Last address used for calculation [address] [facility] 09/16/2022 Sex and Gender Information Value [...] on filedocumented in this encounter Care Teams Customer Support Analyst Relationship Specialty Start Date End Date Cady Hilliard MD PCP - General Gastroenterology 06/17/22 documented as of this encounter
--- OUTSIDE RECORDS SUMMARY | 2024-12-03 12:09 | XMS_ITS | Encounter Summary ---
Author Organization [facility] Address [address] [place] [address] Care Team Providers Care Boiler Maker Name Role Phone Unavailable Primary Care Provider Unavailabl e Encounter Details Date Type Department Care Team (Latest Contact Info) Description 11/27/2024 Travel Social History Tobacco Use Types Packs/Day Years [...] EDT Office Visit [facility] [address] [place] [phone] Rachael Pittman, DPM [address] [place], [place] [phone] documented as of this encounter Visit Diagnoses Not on filedocumented in this encounter
--- OUTSIDE RECORDS SUMMARY | 2024-12-03 12:09 | XMS_ITS | Encounter Summary ---
Author Organization [facility] Address [address] [place] [address] Care Team Providers Care 3Rd Pressman Name Role Phone Unavailable Primary Care Provider Unavailabl e Encounter Details Date Type Department Care Team (Latest Contact Info) Description 11/19/2024 Travel Social History Tobacco Use Types Packs/Day [...] EDT Office Visit [facility] [address] [place] [phone] Rachael Pittman, DPM [address] [place], [place] [phone] documented as of this encounter Visit Diagnoses Not on filedocumented in this encounter
--- OUTSIDE RECORDS SUMMARY | 2024-12-03 12:09 | XMS_ITS | Encounter Summary ---
Author Organization [facility] Address [address] [place] [address] Care Team Providers Care Financial Reserve Clerk Name Role Phone Unavailable Primary Care Provider Unavailabl e Encounter Details Date Type Department Care Team (Latest Contact Info) Description 11/28/2024 Travel Social History Tobacco Use Types Packs/Day [...] EDT Office Visit [facility] [address] [place] [phone] Rachael Pittman, DPM [address] [place], [place] [phone] documented as of this encounter Visit Diagnoses Not on filedocumented in this encounter
--- OUTSIDE RECORDS SUMMARY | 2024-12-03 12:09 | XMS_ITS | Encounter Summary ---
Author Organization [facility] Healthcare Address [address] [place] [address] Care Team Providers Care Certification Technician Name Role Phone Unavailable Primary Care Provider Unavailabl e Encounter Details Date Type Department Care Team (Late st Contact Info) Description 10/29/2024 Abstract [facility] [address] [place] [address] Gagan Vicente DPM [address] [place], [place] [phone] Social History Tobacco Use Types Packs/Day Years [...] Office Visit [facility] [address] [place] [phone] Rachael Pittman DPM [address] [place], [place] [phone] documented as of this encounter Visit Diagnoses Not on filedocumented in this encounter
--- OUTSIDE RECORDS SUMMARY | 2024-12-03 12:09 | XMS_ITS | Encounter Summary ---
Author Organization [facility] Address [address] [place] [address] Care Team Providers Care Senior Research Fellow Name Role Phone Unavailable Primary Care Provider Unavailabl e Reason for Visit * Reason Onset Date Comments Advice Only 10/29/2024 Custom orthotics Encounter Details Date Type Department Care Team (Late st Contact Info) Description 10/29/2024 Telephone [facility] [address] [place] [phone] Gagan Vicente, [place] [address] [place] [address] Advice Only (Custom orthotics) Social History Tobacco Use Types Packs/Day Years [...] on file documented as of this encounter Miscellaneous Notes * Telephone Encounter - Nuha Santizo - 10/29/2024 2:37 PM EDT Patients custom [facility]otics arrived today patient is scheduled to pick them up documented in this encounter Plan of Treatment Upcoming Encounters Date Type Department Care Team (Late st Contact Info) Description 12/24/2024 8:45 AM EDT Office Visit [facility] [address] [place] [phone] Rachael Pittman, DPM [address] [place] [address] documented as of this encounter Visit Diagnoses Not on filedocumented in this encounter
--- OUTSIDE RECORDS SUMMARY | 2024-12-03 12:10 | XMS_ITS | Encounter Summary ---
Author Organization [facility] tem Address [id number] [address] [place] [address] Care Team Providers Care Porcelain Slusher Name Role Phone Addy Cornell MD Primary Care Provider [phone] Encounter Details Date Type Department Care Team (Late st Contact Info) Description 09/25/2020 Telephone [facility] Imaging [address] [place] [address] Oliva Rothman RN Social History [...] on filedocumented in this encounter Care Teams Porcelain Slusher Relationship Specialty Start Date End Date Addy Cornell MD PCP - General Family Medicine 11/06/22 documented as of this encounter
--- OUTSIDE RECORDS SUMMARY | 2024-12-03 12:10 | XMS_ITS | Patient Health Record ---
Author Organization [facility] in [place] Address [address] [place] [address] Care Team Providers Care Spice Miller Name Role Phone Sameer Maria Primary Care Provider Allergies Allergen (clinical drug ingredient) Drug/Non Drug Allergy documented on EMR Reaction Allergy Type Onset Date Status contrast dye (uncoded) Unknown Allergy Active tamsulosin Flomax couldnt walk Drug Allergy Act sarai Results Component Value Reference Range Notes AMMONIA Reviewed date:10/14/2024 08:41:56 PM Interpretation: Performing Lab: Notes/Report: [facility] , Ammonia 23 11-32 umol/L Performing Lab: see note ML - [facility] LB PTT Reviewed date:10/14/2024 08:41:56 PM Interpretation: Performing Lab: Notes/Report: [facility] , Partial Thromboplastin Time 27.6 22.3-36.2 sec Performing Lab: see note ML - [facility] LB FREE T3 Reviewed date:10/14/2024 08:41:55 PM Interpretation: Performing Lab: Notes/Report: [facility] , Free T3 3.24 2.18-3.98 pg/mL Performing Lab: see note ML - [facility] LB GLYCOHEMOGLOBIN A1C Reviewed date:10/14/2024 08:41:55 PM Interpretation: Performing Lab: Notes/Report: [facility] , Glycohemoglobin A1C 5.4 4.5-6.2 % ADA RECOMMENDED LIMIT 4.0 - 6.0 ADA THERAPEUTIC TARGET < 7.0 ACTION SUGGESTED > 7.0 Estimated Average Glucose 108 Performing Lab: see note ML - [facility] LB LIPID PROFILE Reviewed date:10/14/2024 08:41:55 PM Interpretation: Performing Lab: Notes/Report: [facility] , Triglycerides 86 <=150 mg/dL Cholesterol 173 <=200 mg/dL HDL Cholesterol 49 40-60 mg/dL > or =60 mg/dl - LOW CARDIOVASCULAR RISK <40 mg/dl - HIGH CARDIOVASCULAR RISK LDL Cholesterol Calculated 106.8 <100 mg/dl OPTIMAL 100-129 mg/dl NEAR OR ABOVE OPTIMAL 130-159 mg/dl BORDERLINE HIGH 160-189 mg/dl HIGH >190 mg/dl VERY HIGH VLDL CHOLESTEROL 17.2 Chol HDL Ratio 3.5 3.3 - 4.4 LOW RISK 4.4 - 7.1 AVERAGE RISK 7.1 - 11.0 MODERATE RISK >11.0 HIGH RISK Performing Lab: see note ML - [facility] PROF 14(COMP METB) Reviewed date:10/14/2024 08:41:55 PM Interpretation: Performing Lab: Notes/Report: [facility] , Sodium 141 136-145 mmol/L Potassium 4.5 3.5-5.1 mmol/L Chloride 105 98-107 mmol/L Carbon Dioxide 23.0 21.0-32.0 mmol/L Anion Gap 17.5 Glucose 109 74-106 mg/dL Blood Urea Nitrogen 18.0 7.0-18.0 mg/dL Creatinine 0.76 0.70-1.30 mg/dL Estimated GFR ( Millicent >60 >=60 mL/min/1.73m 2 Estimated GFR (Non- Bianka >60 >=60 mL/min/1.73m 2 BUN Creatinine Ratio 23.7 Calcium 9.4 8.5-10.1 mg/dL Bilirubin Total 0.6 0.2-1.0 mg/dL Aspartate Amino Transferase 63 15-37 U/L Alanine Aminotransferase 139 16-63 U/L Alkaline Phosphatase 294 46-116 U/L Total Protein 7.4 6.4-8.2 g/dL Albumin Level 3.7 3.4-5.0 g/dL Globulin 3.7 Albumin Globulin Ratio 1.0 Performing Lab: see note ML - [facility] LB PSA SCREENING Reviewed date:10/14/2024 08:41:55 PM Interpretation: Performing Lab: Notes/Report: [facility] , Prostate Specific Antigen Scrn 1.51 <=4.00 ng/mL Performing Lab: see note ML - [facility] LB T4 Reviewed date:10/14/2024 08:41:55 PM Interpretation: Performing Lab: Notes/Report: [facility] , T4 Thyroxine 5.20 4.50-12.10 ug/dL Performing Lab: see note ML - [facility] LB TSH Reviewed date:10/14/2024 08:41:55 PM Interpretation: Performing Lab: Notes/Report: [facility] , Thyroid Stimulating Hormone 1.164 0.358-3.740 uIU/mL Performing Lab: see note ML - [facility] LB URIC ACID SERUM Reviewed date:10/14/2024 08:41:55 PM Interpretation: Performing Lab: Notes/Report: [facility] , Uric Acid 4.3 3.5-7.2 mg/dL Performing Lab: see note ML - [facility] LB ECG 12 lead Reviewed date:11/30/2024 04:33:46 PM Interpretation: Performing Lab: Notes/Report: Source Facility: [place] [address] [place] [address] Electrocardiograph Report Signed Patient: NEFTALI ESCALERA MR#: [id number] : 1980 Acct:[id number] Age/Sex: 44 / M ADM Date: 11/29/24 Loc: ER Attending Dr: Ordering Physician: Saroj Kirkland Date of Service: 11/29/24 Procedure(s): ECG 12 lead Accession Number(s): [id number] cc: [facility] Test Date: 2024-11-29 Pat Name: NEFTALI ESCALERA Department: Room: - Gender: Male Desktop Support Associate: : 1980 Requested By: [id number] Order Number: [id number] Reading MD: TIAN DAILEY M.D. Measurements Intervals [place] Rate: 84 P: 43 IL: 150 QRS: 54 QRSD: 68 T: 19 QT: 348 QTc: 389 Interpretive Statements 1100 Sinus rhythm 1570 with occasional ventricular premature complexes 4068 Nonspecific Twave abnormality 9140 abnormal rhythm ECG Compared to ECG 06/07/2021 11:19:46 Ventricular premature complex(es) now present Electronically Signed On 11-29-2024 20:54:18 EDT by TIAN DAILEY M.D. Dictated By: TIAN DAILEY Signed By: 11/29/242053 DD/ 20 TD/TT: Stamping Machine Operator: [place] [address] Electrocardiograph Report Signed Patient: PAZ ESCALERA MR#: [id number] : 1980 Acct:[id number] Age/Sex: 44 / M ADM Date: 11/29/24 Loc: ER Attending Dr: Ordering Physician: Saroj Kirkland Date of Service: 11/29/24 Procedure(s): ECG 12 lead Accession Number(s): [id number] cc: [facility] Test Date: 2024-11-29 Pat Name: NEFTALI AVILA Department: 44 Room: - Gender: Male Desktop Support Associate: : 1980 Requ ested By: [id number] Order Number: [id number] Reading MD: TIAN DAILEY M.D. Measurements Intervals [place] Rate: 84 P: 43 IL: 150 QRS: 54 QRSD: 68 T: 19 QT: 348 QTc: 389 Interpretive Statements 1100 Sinus rhythm 1570 with occasional ventricular premature complexes 4068 Nonspecific Twa ve abnormality 9140 abnormal rhy [facility] ECG Compared to ECG 06/07/2021 11:19:46 Ventricular prematur e complex(es) now present Electronically Cecille d On 11-29-2024 20:54:18 EDT by TIAN DAILEY M.D. Dictated By: TIAN DAILEY Signed By: 11/29/242053 DD/ 20 TD/TT: Stamping Machine Operator: YAZAN chest 1V Reviewed date:11/30/2024 04:33:46 PM Interpretation: Performing Lab: Notes/Report: Source Facility: [place] [address] [place] [address] XRay Report Signed Patient: NEFTALI ESCALERA MR#: [id number] : 1980 Acct:[id number] Age/Sex: 44 / M ADM Date: 11/29/24 Loc: ER Attending Dr: Ordering Physician: Qamar Sandoval M.D. Date of Service: 11/29/24 Procedure(s): XR chest 1V Accession Number(s): [id number] cc: Randy Maria M.D.; Qamar Sandoval M.D. [address] [address] Patient Name: NEFTALI ESCALERA MRN: [id number] date: 1980 Sex: M Assigned Patient Location: ER Current Patient Location: ER Accession/Order Number: [id number] Exam Date: 11/29/2024 18:40 Report Date: 11/29/2024 18:47 At the request of: QAMAR SANDOVAL MD Procedure: XR chest 1V Plain film chest Single view HISTORY: Sore throat. The cervical os potentially in throat. COMPARISON: None FINDINGS: SUPPORT DEVICES: None POSTSURGICAL CHANGES: None HEART: Within normal limits PULMONARY MICHAEL: Within normal limits MEDIASTINUM: Unremarkable LUNGS AND PLEURA: No acute lung process, pleural effusion or pneumothorax identified. BONY STRUCTURES: Intact ADDITIONAL FINDINGS no radiodense foreign body XR/XR chest 1V IMPRESSION: No acute process. Impression dictated by: Alpesh Marx M.D. 11/29/2024 6:47 PM Dictation Location: [place] [address] Electronically authenticated by: [id number] Y Date: 11/29/2024 18:47 Dictated By: Alpesh Marx D.O. Signed By: 11/29/241849 DD/ 184 TD/TT: Stamping Machine Operator: The [address] [address] XRay Report Signed Patient: PAZ ESCALERA MR#: [id number] : 1980 Acct:[id number] Age/Sex: 44 / M ADM Date: 11/29/24 Loc: ER Attending Dr: Ordering Physician: Qamar Sandoval M.D. Date of Service: 11/29/24 Procedure(s): XR chest 1V Accession Number(s): [id number] cc: Randy Maria M.D. ; Qamar Sandoval M.D. [place] [address] Patient Name: NEFTALI ESCALERA MRN: [id number] date: 1980 Sex: M Assigned Patient Location: ER Current Patient Loca tion: ER Accession/Order Numb er: [id number] Exam Date: 11/29/2024 18:40 Report Date: 11/29/2024 18:47 At the request of: QAMAR SANDOVAL MD Procedure: XR chest 1V Plain film chest Sin gle view HISTORY: Sore throat . The cervical os potentially in throat. COMPARISON: None FINDINGS: SUPPORT DEVICES: None POSTSURGICAL CHANGES : None HEART: Within normal limits PULMONARY MICHAEL: With in normal limits MEDIASTINUM: Unremarkable LUNGS AND PLEURA: No acute lung process, pleural effusion or pneumothorax identified. BONY STRUCTURES: Intact ADDITIONAL FINDINGS no radiodense foreign body X R/XR chest 1V IMPRESSION: No acute process. Impression dictated by: Alpesh Marx M.D. 11/29/2024 6:47 PM Dictation Location: [place] [address] Electronically authenticated by: [id number] Y Date: 11/29/2024 18:47 Dictated By: Ar Marx D.O. Signed By: 11/29/241849 DD/ 46 TD/TT: Stamping Machine Operator: XR soft tissue neck Reviewed date:11/30/2024 04:33:46 PM Interpretation: Performing Lab: Notes/Report: Source Facility: [place] [address] [place] [address] XRay Report Signed Patient: NEFTALI ESCALERA MR#: [id number] : 1980 Acct:[id number] Age/Sex: 44 / M ADM Date: 11/29/24 Loc: ER Attending Dr: Ordering Physician: Saroj Kirkland Date of Service: 11/29/24 Procedure(s): XR soft tissue neck Accession Number(s): [id number] cc: Randy Schuster M.D. [address] [address] Patient Name: NEFTALI ESCALERA MRN: [id number] date: 1980 Sex: M Assigned Patient Location: ER Current Patient Location: ER Accession/Order Number: [id number] Exam Date: 11/29/2024 18:47 Report Date: 11/29/2024 18:48 At the request of: SAROJ KIRKLAND SENIOR STOCK PLAN ADMINISTRATOR Procedure: XR soft tissue neck AP and lateral Soft Tissues of the Neck HISTORY: Assessment for glass in throat The epiglottis and aryepiglottic folds are normal. Nasopharynx, oropharynx and hypopharynx are patent. No prevertebral or other soft tissue swelling identified. No subcutaneous air seen. No radiodense foreign body Bony structures are intact. XR/XR soft tissue neck IMPRESSION: No radiodense foreign body Impression dictated by: Alpesh Marx M.D. 11/29/2024 6:48 PM Dictation Location: [place] [address] Electronically authenticated by: [id number] Y Date: 11/29/2024 18:48 Dictated By: Alpesh Marx D.O. Signed By: 11/29/241850 DD/ 47 TD/TT: Stamping Machine Operator: [place] [address] XRay Report Signed Patient: PAZ ESCALERA MR#: [id number] : 1980 Acct:[id number] Age/Sex: 44 / M ADM Date: 11/29/24 Loc: ER Attending Dr: Ordering Physician: Saroj Kirkland Date of Service: 11/29/24 Procedure(s): XR sof t tissue neck Accession Number(s): [id number] cc: Saroj Kirkland; Randy Maria M.D. [address] [address] Patient Name: NEFTALI ESCALERA MRN: [id number] date: 1980 Sex: M Assigned Patient Location: ER Current Patient Loca tion: ER Accession/Order Numb er: [id number] Exam Date: 11/29/2024 18:47 Report Date: 11/29/2024 18:48 At the request of: SAROJ KIRKLAND NP Procedure: XR soft t issue neck AP and lateral Soft Tissues of the Neck HISTORY: Assessment for glass in throat The epiglottis and aryepiglottic folds are normal. Nasopharynx, orophar ynx and hypopharynx are patent. No prevertebral or o ther soft tissue swelling identified. No subcutaneous air seen. No radiodense foreign body Bony structures are intact. X R/XR soft tissue neck IMPRESSION: No radio dense foreign body Impression dictated by: Alpesh Marx M.D. 11/29/2024 6:48 PM Dictation Location: [place] [address] Electronically authenticated by: [id number] Y Date: 11/29/2024 18:48 Dictated By: Ar Marx D.O. Signed By: 11/29/241850 DD/ 1848 TD/TT: Stamping Machine Operator: Prothrombin Time INR Reviewed date:10/14/2024 08:41:56 PM Interpretation: Performing Lab: Notes/Report: [facility] , Prothrombin Time 10.8 9.0-11.6 sec INR 1.02 DESIRED INR: 2.0-3.0 CONDITIONS NOT LISTED BELOW 2.5-3.5 FOR PROSTHETIC HEART VALVE REPLACEMENT 2.5-3.5 RECURRENT THROMBOSIS Performing Lab: see note ML - [facility] LB CBC AUTO DIFF Reviewed date:10/14/2024 08:41:55 PM Interpretation: Performing Lab: Notes/Report: [facility] , White Blood Count 9.3 4.0-11.0 10 3/uL Red Blood Count 5.07 4.70-6.10 10 6/uL Hemoglobin 15.9 14.0-18.0 g/dL Hematocrit 45.9 42.0-54.0 % Mean Corpuscular Volume 90.5 80.0-94.0 fL Mean Corpuscular Hemoglobin 31.4 25.9-34.0 pg Mean Corpuscular HGB Conc 34.6 29.9-35.2 g/dL Red Cell Distribution Width 12.7 11.0-15.0 % Platelet Count 225 150-450 10 3/uL Mean Platelet Volume 10.8 9.5-13.5 fL Neutrophils Percent Auto 54.2 43.0-75.0 % Lymphocytes Percent Auto 25.7 20.5-60.0 % Monocytes Percent Auto 14.3 1.7-12.0 % Eosinophils Percent Auto 4.9 0.9-7.0 % Basophils Percent Auto 0.4 0.2-2.0 % Immature Granulocytes Pct Auto 0.5 0.0-0.5 % Neutrophils Absolute Auto 5.0 1.4-6.5 10 3/uL Lymphocytes Absolute Auto 2.4 1.2-3.8 10 3/uL Monocytes Absolute Auto 1.3 0.3-0.8 10 3/uL Eosinophils Absolute Auto 0.5 0.0-0.7 10 3/uL Basophils Absolute Auto 0.0 0.0-0.1 10 3/uL Immature Granulocytes Abs Auto 0.05 0.00-0.03 10 3/uL Performing Lab: see note ML - [facility] Reason For Referral Diagnosis 1 Primary sclerosing c holangitis (K83.01) Referral Organization [facility] Referring Provider First Name Sameer Referring Provider Last Name Crow Referring Provider Speciality [facility] Referred Provider Redd Santiago Referred Provider Specialty Gastroentero logy Referral Priority Routine Medications Medication SIG (Take, Route, Frequency, Duration) Notes Start Date End Date Status Polyethylene Glycol Active Fish Oil Active metroNIDAZOLE 500 MG 1 tablet Orally Thr ee times a day for 10 days 12/03/2024 Active Fexofenadine HCl 180 MG 1 tablet Swallow whole with water; do not take with fruit juices. Orally Once a day 10/10/2024 Active Ergocalciferol 1.25 MG (10318 UT) 1 capsule Orally one weekly 10/10/2024 Active Ciprofloxacin HCl 500 MG 1 tablet Orally every 12 hrs for 10 days 12/03/2024 Active Rikki 250 250mg Active Albuterol Sulfate HFA 108 (90 Base) MCG/ACT 2 puff as needed Inhalation every 4 hrs 10/10/2024 Active Senexon-S Active Social History Tobacco Use: Social History Observation Description Date Details (start date - stop date) Never Smoker NA - NA Tobacco Control (Standard) Question Answer Notes Tobacco use: Nonsmoker AUDIT-C (Standard) Question Answer Notes Did you have a drink containing alcohol in the p ast year? 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 Problem Primary sclerosing cholangitis (disorder) (187759890) PSC (primary sclerosing cholangitis) (K83.01) Active confirmed Vital Signs Temperature 98.5 degrees Fahrenheit 10/10/2024 Blood pressure diastolic 82 mm Hg 12/03/2024 Height 69 in 12/03/2024 Blood pressure systolic 110 mm Hg 12/03/2024 Weight 202.2 lbs 12/03/2024 BMI 29.86 kg/m2 12/03/2024 Encounters Encounter Location Date Provider Diagnosis [place] [address] [place] [address] 10/10/2024 Sameer Hoy Otitis media H66.90 ; Well adult Z00.00 and Primary sclerosing cholangitis K83.01 [place] [place] [address] 12/03/2024 Sameer Hoy Left lower quadrant pain R10.[address] [facility] [address] [place] [address] 10/10/2024 Sameer Hoy Primary sclerosing cholangitis K83.[address] [address] 10/14/2024 Sameer Hoy [address] [place] [address] 11/30/2024 Sameer Hoy Assessments Encounter Date Diagnosis (ICD Code) Assessment Notes Treatment Notes Treatment Clinical Notes Section Notes 10/10/2024 Otitis media (ICD-10 - H66.90) R > l 10/10/2024 Well adult (ICD-10 - Z00.00) 12/03/2024 Left lower quadrant pain (ICD-10 - R10.32) LLQ tenderness - rebound tenderness - and pain in LLQ with palpation RLQ 12/03/2024 Migraine (ICD-10 - G43.909) 10/10/2024 Primary sclerosing cholangitis (ICD-10 - K83.01) 10/10/2024 Primary sclerosing cholangitis (ICD-10 - K83.01) referral to Dr Santiago Plan Of Treatment Pending Test Test Name Order Date HEMOGLOBIN A1C (GLYCO) 10/10/2024 LIPID PANEL (CHOL/TRIG/HDL/LDL) 10/11/19 25 URIC ACID 10/10/2024 PT - INR 10/10/2024 CT ABD and PELVIS WO CON 12/03/2024 MRI BRAIN WO CON 12/03/2024 THYROID PANEL (T4/TSH/FREE T3) PSA, SCREENING 10/10/2024 CMP (COMP MET COBB) w/eGFR CKD-EPI 2024 CBC WITH DIFF 10/10/2024 Insurance Providers Payer Name Payer Address Payer Phone Subscriber Number Group Number Insured Name Patient Relationship to Insured Coverage Start Date Coverage End Date [employer] [place] [employer] [address] [address] [place] [phone] [id number] Neftali Escalera Self - patient is the insured Medical (General) History Medical History History ICD Code PSC (primary sclerosing cholangitis) K83 .01 Asthma J45.909 Surgical History Surgery Date(Month/Year) Teeth Removal Hospitalization History Reason Date(Month/Year) Tonsillectomy Liver- obs
--- OUTSIDE RECORDS SUMMARY | 2024-12-03 12:10 | XMS_ITS | Clinical Summary ---
Author Organization [facility] Healthcare Address [address] [place] [address] Care Team Providers Care Certified Professional Midwife Name Role Phone Unavailable Primary Care Provider [...] Encounters Date Type Department Care Team Description 11/28/2024 9:20 AM EDT Ancillary Procedure [facility] [address] [place] [address] 11/28/2024 8:45 AM EDT Office Visit [facility] [address] [place] [address] Rachael Pittman DPM Injury of second toe, right, initial encounter (Primary Dx); Closed fracture of phalanx of right second toe, initial encounter; Pain of toe of right foot 11/28/2024 Bamboo flowsheet [facility] [address] [place] [address] Rachael Pittman DPM 11/28/2024 Travel 11/27/2024 Travel 11/19/2024 Travel 10/30/2024 11:15 AM EDT Office [facility] [address] [place] [address] Gagan Vicente, [place] Plantar fasciitis, right (Primary Dx); Inflammatory heel pain, right; Calcaneal spur, right; Difficulty walking 10/30/2024 Abstract [facility] [address] [place] [address] Gagan Vicente DPM 10/30/2024 Bamboo flowsheet [facility] [address] [place] [address] Gagan Vic[place], [place] 10/30/2024 Travel 10/29/2024 Travel 10/29/2024 [facility]phone [facility] [address] [place] [address] Gagan Vicente, [place] Advice Only (Custom orthotics) 10/29/2024 Abstract [facility] [address] [place] [address] Gagan Vic[place], [place] 10/16/2024 2:45 PM EDT Office Visit [facility] [address] [place] [address] Gagan Vic[place], [place] Plantar fasciitis, right (Primary Dx); Inflammatory heel pain, right; Calcaneal spur, right; Difficulty walking 10/16/2024 Bamboo flowsheet [facility] [address] [place] [address] Gagan Vicente, [place] 10/16/2024 Travel 10/15/2024 Travel 09/25/2024 9:45 AM EDT Office Visit [facility] [address] [place] [address] Gagan Vic[place], [place] Plantar fasciitis, right (Primary Dx); Inflammatory heel pain, right; Calcaneal spur, right; Difficulty walking 09/25/2024 Abstract [facility] [address] [place] [address] Gagan Vicente DPM 09/25/2024 Bamboo flowsheet [facility] [address] [place] [address] Gagan Vicente, [place] 09/25/2024 Travel 09/24/2024 Travel 09/03/2024 2:25 PM EDT [facility] [address] [place] [address] 09/03/2024 1:45 PM EDT Office Visit [facility] [address] [place] [address] Gagan Vicente DPM Plantar fasciitis, right (Primary Dx); Inflammatory heel pain, right; Calcaneal spur, right; Difficulty walking 09/03/2024 Bamboo flowsheet [facility] [address] [place] [address] Gagan Vicente DPM 09/03/2024 Travel 09/02/2024 Travel from Last 3 Months Family History Medical History Relation Name Comments Diabetes Brother 1 brother Diabetes Brother 2 brother Asthma Father dad Hearing loss Father dad Arthritis Mother mom Heart disease Mother mom Hypertension Mother mom Relation Name Status Comments Brother 1 brother Alive Brother 2 brother Alive Father dad Alive Mother mom [...] Mass Index 23.11 11/28/2024 8:46 AM EDT Plan of Treatment Upcoming Encounters Date Type Department Care Team (Late st Contact Info) Description 12/24/2024 8:45 AM EDT Office Visit [facility] [address] [place] [address] Rachael Pittman DPM [address] [place], [place] [phone] Procedures Procedure Name Priority Date/Time Associated Diagnosis Comments XR FOOT 3+ VIEWS RIGHT Routine 11/28/2024 9:16 AM EDT Injury of second toe, right, initial encounter Closed fracture of phalanx of right second toe, initial encounter XR FOOT 1-2 VIEWS RIGHT Routine 09/03/2024 2:22 PM EDT Plantar fasciitis, right Inflammatory heel pain, right Calcaneal spur, right Difficulty walking from Last 3 Months Results * XR foot 3+ views right (11/28/2024 9:16 AM EDT) Anatomical Region Laterality Modality Lower Extremities, Foot Right Radiogra phic Imaging Narrative 11/28/2024 9:53 AM EDT Imaging Result: 3 views foot: AP, MO, and lateral of the right foot were taken and show complete oblique fracture of the proximal phalanx 2nd digit. Alignment is satisfactory, however on the lateral view there is dorsal angulation noted of the distal fragment of the proximal phalanx Rachael Pittman DP IMG XR PROCEDURES Final Res ult * XR foot 1 or 2 views right (09/03/2024 2:22 PM EDT) Anatomical Region Laterality Modality Lower Extremities, Foot Right Radiogra phic Imaging Narrative 09/03/2024 2:23 PM EDT Imaging Result: 2 views right foot: Weight-bearing: Lateral and oblique: 09/03/2024: Unremarkable for acute osseous or joint pathology. Unremarkable for fracture, stress fracture, cystic, erosive or lytic changes of the calcaneus. Calcific deposition at the insertion of the Achilles tendon. No plantar enthesophyte is noted. Gagan Vicente DP IMG XR PROCEDURES Final Resu lt from Last 3 Months Insurance [employer] [place]
--- OUTSIDE RECORDS SUMMARY | 2024-12-03 12:10 | XMS_ITS | Encounter Summary ---
Author Organization [facility] Healthcare Address [address] [place] [address] Care Team Providers Care Celery Packer Name Role Phone Unavailable Primary Care Provider Unavailabl e Encounter Details Date Type Department Care Team (Late st Contact Info) Description 09/25/2024 Abstract [facility] [address] [place] [address] Gagan Vicente DPM [address] [place], [place] [phone] Social History Tobacco Use Types Packs/Day Years [...] Office Visit [facility] [address] [place] [address] Rachael Pittman DPM [address] [place], [place] [phone] documented as of this encounter Visit Diagnoses Not on filedocumented in this encounter
--- OUTSIDE RECORDS SUMMARY | 2024-12-03 12:10 | XMS_ITS | Clinical Summary ---
Author Organization [facility] Address [address] [place] [address] Care Team Providers Care Job Forwarder Name Role Phone Cady Hilliard MD Primary Care Provider Allergies Active Allergy Reactions Criticality Noted Date [...] is lower risk 9 09/16/2022 Data from: https://www.neighborhoodatlas.medicine.[facility].edu/. Last address used for calculation [address] [place] [address] 09/16/2022 Sex and Gender Information Value Date [...] of 3 - 19+ 3-dose series) 1999 HPV Vaccine (1 - 3-dose SCDM series) 2007 Lipid Screening 2015 Influenza Vaccine (#1) 2024 Hepatitis C Screening Completed 08/19/2022, 023 Procedures Procedure Name Priority Date/Time Associated Diagnosis Comments HEP REMOTE PANEL BL Routine 08/19/2022 2 :23 PM EDT PSC (primary sclerosing cholangitis) from Last 3 Months or Most Recently Relevant to Health Maintenance Insurance [employer] [employer]BS [place] Care Teams Job Forwarder Relationship Specialty Start Date End Date Cady Hilliard MD PCP - General Gastroenterology 06/17/22
--- OUTSIDE RECORDS SUMMARY | 2024-12-03 12:10 | XMS_ITS | Encounter Summary ---
Author Organization [facility] Address [address] [place] [place] [address] Care Team Providers Care Client Service Associate Name Role Phone Unavailable Primary Care Provider Unavailabl e Encounter Details Date Type Department Care Team (Late st Contact Info) Description 11/07/2022 Abstract [facility] [address] [facility] [address] [place] [phone] Ángela Sheffield MD [address] [facility] [address] [place] [address] Social History Tobacco Use Types Packs/Day Years [...] Office Visit [facility] [address] [place] [address] Rachael Pittman, DPM [address] [place], [place] [phone] documented as of this encounter Visit Diagnoses Not on filedocumented in this encounter
--- OUTSIDE RECORDS SUMMARY | 2024-12-03 12:10 | XMS_ITS | Encounter Summary ---
Author Organization [facility] Address [address] [place] [address] Care Team Providers Care Human Resources Clerk Name Role Phone Cady Hilliard MD Primary Care Provider [phone] Source Comments In the event this information is protected by the Federal Confidentiality of Alcohol and Drug AbusePatient Records regulations: The Federal rules restrict any use of the information to criminally investigate or prosecute any alcohol or drug abuse patient.[facility] Encounter Details Date Type Department Care Team (Late st Contact Info) Description 01/27/2023 Patient Msg Gastroenterology [address] [phone] Corey Kothari, Research Coordinator [address] [place], [place] [id number] [id number] Study Treatment of Cholestatic Pruritus in [...] is lower risk 9 09/16/2022 Data from: https://www.neighborhoodatlas.medicine.[facility].edu/. Last address used for calculation [address] 09/16/2022 Sex and Gender Information Value [...] on filedocumented in this encounter Care Teams Human Resources Clerk Relationship Specialty Start Date End Date Cady Hilliard MD PCP - General Gastroenterology 06/17/22 documented as of this encounter
--- OUTSIDE RECORDS SUMMARY | 2024-12-03 12:10 | XMS_ITS | Clinical Summary ---
Author Organization [facility] tem Address [id number] [address] [place] [address] Care Team Providers Care Rn Geriatric Name Role Phone Addy Cornell MD Primary Care Provider [phone] Allergies Active Allergy Reactions Criticality Noted Date [...] BMI Screening 11/07/2023 11/06/2022 Tobacco Screening 11/07/2023 Influenza Vaccine 12/16/2024 Medical Devices Not on file Insurance ANTHEM MEDICAID Care Teams Rn Geriatric Relationship Specialty Start Date End Date Addy Cornell MD PCP - General Family Medicine 11/06/22
--- NOTE | 2024-12-03 13:17 | CT_ITS ---
The [place] [id number] Patient Name: KIRK BURGER MRN: [id number] date: 1980 Sex: M Assigned Patient Location: CT Current Patient Location: .[facility] Accession/Order Number: [id number] Exam Date: 12/03/2024 13:31 Report Date: 12/03/2024 13:35 At the request of: NEWTON CALVO MD Procedure: CT abdomen pelvis wo con CT ABDOMEN AND PELVIS WITHOUT INTRAVENOUS CONTRAST: CLINICAL HISTORY: Left lower quadrant pain COMPARISON: X-rays 06/28/2022, CT 04/02/2022 TECHNIQUE: Spiral images were obtained through the abdomen and pelvis without intravenous contrast. This CT exam was performed using one or more following dose reduction techniques: Automated exposure control, adjustment of the mA and/or kV according to patient size, or use of iterative reconstruction technique. FINDINGS: Lung Bases: [Minimal bibasilar hypoventilatory change.[ Organs:Liver, spleen, adrenals, kidneys, pancreas, gallbladder unremarkable. [ GI: Mild to moderate stool burden greatest distally. Unremarkable appendix.[ Pelvis:[Mild bladder. Prostate is unremarkable.] Peritoneum/Retroperitoneum:No free air or free fluid. Aorta normal caliber. No bulky adenopathy.[ Abd wall/Bones: No suspicious osseous lesion. CT/CT abdomen pelvis wo con IMPRESSION: Negative acute inflammatory process or bowel obstruction. Impression dictated by: Ash Levy M.D. 12/03/2024 1:35 PM Dictation Location: [place] [address] Electronically authenticated by: [id number] Y Date: 12/03/2024 13:35
== END 2024-12-03 12:07 | disposition home or self-care (01) ==
LOC: CT 12:07
PROVIDERS: PCP Family Medicine; Visit Provider Family Medicine
DX: R10.32 Left lower quadrant pain (principal)
CPT/HCPCS: 74176

== ENCOUNTER 2024-12-05 08:36 | Outpatient (OUT) | payer MEDICAID, SELFPAY ==
--- NOTE | 2024-12-05 08:43 | MR_ITS ---
[address] [address] Patient Name: KIRK BURGER MRN: [id number] date: 1980 Sex: M Assigned Patient Location: MRI Current Patient Location: MRI Accession/Order Number: [id number] Exam Date: 12/05/2024 11:51 Report Date: 12/05/2024 11:57 At the request of: NEWTON CALVO MD Procedure: MR head/brain wo con EXAMINATION: MRI OF THE BRAIN WITHOUT CONTRAST CLINICAL HISTORY: Migraine G43.909 COMPARISON: None TECHNIQUE: Multiecho, multiplanar imaging of the brain was performed without contrast. No restricted diffusion. Ventricles and sulci normal size and configuration for patient's age. No shift midline structures. Basal cisterns are patent. Brain parenchyma unremarkable in signal intensity. No abnormal GRE signal. Major intracranial intravascular flow voids preserved. Mild paranasal sinus mucosal thickening. MR/MR head/brain wo con IMPRESSION: Minimal central involutional changes, mild prominent patient age. Otherwise, essentially Unremarkable MRI brain performed without contrast. Impression dictated by: Ash Levy M.D. 12/05/2024 11:57 AM Dictation Location: [place] [address] Electronically authenticated by: [id number] Y Date: 12/05/2024 11:57
--- NOTE | 2024-12-05 09:09 | XR_ITS ---
The [address] [address] Patient Name: KIRK BURGER MRN: [id number] date: 1980 Sex: M Assigned Patient Location: MRI Current Patient Location: MRI Accession/Order Number: [id number] Exam Date: 12/05/2024 09:17 Report Date: 12/05/2024 09:19 At the request of: NEWTON CALVO MD Procedure: XR foreign body eye TRELL XR foreign body eye TRELL 12/05/2024 9:12 AM SIGNS AND SYMPTOMS: ^Foreign Body Eye PROTOCOL: Frontal and lateral radiographs of the orbits COMPARISON: 11/29/2018 FINDINGS: No abnormal radiopaque foreign body. The orbits are grossly intact. The paranasal sinuses appear to be well aerated. XR/XR foreign body eye TRELL IMPRESSION: No abnormal radiopaque foreign body. Impression dictated by: Trevor Merlos M.D. 12/05/2024 9:19 AM Dictation Location: [place] [address] Electronically authenticated by: [id number] Y Date: 12/05/2024 09:19
== END 2024-12-05 08:37 | disposition home or self-care (01) ==
LOC: MRI 08:37
PROVIDERS: PCP Family Medicine; Visit Provider Family Medicine
DX: G43.909 Migraine, unspecified, not intractable, without status migrainosus (principal)
CPT/HCPCS: 70030; 70551

== ENCOUNTER 2025-01-06 10:20 | Outpatient (OUT) | payer MEDICAID, SELFPAY ==
--- OUTSIDE RECORDS SUMMARY | 2024-12-24 08:45 | XMS_ITS | Encounter Summary ---
Author Organization [facility] Address [address] [place] [address] Care Team Providers Care Valuer Name Role Phone Unavailable Primary Care Provider Unavailabl e Reason for Visit * Reason Comments Follow-up Established patient presents today for 1 month fuv of fracture to right 2nd toe. Patient states the toe is still sore. Patient reports involuntary movements with the toe. Patient states it was getting better up until a week ago he states he had a bad episode of this involuntary movement and made pain worse again. Patient continues to wear fx boot. Patient keeps toe splinted to 3rd toe. SS: 9 Encounter Details Date Type Department Care Team (Late st Contact Info) Description 12/24/2024 8:45 AM EDT Office Visit [facility] [address] [place] [phone] Rachael Pittman, DPM [address] [place], [place] [phone] Closed fracture of phalanx of right second toe with routine healing, subsequent encounter (Primary Dx); Injury of second toe, right, subsequent encounter; Pain of toe of right foot [...] - - Weight 68.9 kg (152 lb) 12/24/2024 8:44 AM EDT Height 172.7 cm (5' 8 ) 12/24/2024 8:44 AM EDT Body Mass Index 23.11 12/24/2024 8:44 AM EDT documented in this encounter Progress Notes * Rachael Pittman, LITAM - 12/24/2024 8:45 AM EDT Images from the original note were not included. Subjective Patient ID: Toni Escalera is a 44 y.o. male who presents for Follow-up (Established patient presentstoday for 1 month fuv of fracture to right 2nd toe. Patient states the toe is still sore. Patient reports involuntary movements with the toe. Patient states it was getting better up until a week ago he states he had a bad episode of this involuntary movement and made pain worse again. Patient continues to wear fx boot. Patient keeps toe splinted to 3rd toe. SS: 9). HPI Established patient returns 3-1/2 weeks for fracture of the right 2nd toe. He states he has been wearing the cam walker and weight-bearing as tolerated. He has been darryn splinting the 2nd digit to the 3rd. He states he felt that the 2nd toe needed more stabilization. So about 1 week ago he startedwearing a metal splint for a finger around the toe. He states the toe is still very painful for him. He also reports involuntary movement of the right foot and toe that create pain Review of Systems Medications Current Outpatient Medications: [...] tablet by mouth Daily, Disp: , Rfl: sennosides (Senokot) 8.6 MG tablet, Take 8.6 mg by mouth in the morning and 8.6 mg in the evening.,Disp: , Rfl: ursodiol (Actigall) 300 MG capsule, [...] to warm. Varicosities: absent Hair growth: present Localized edema right 2nd digit has improved Pulmonary: Effort: Pulmonary effort is normal. Musculoskeletal: Right lower leg: No edema. Left lower leg: No edema. Comments: ROM: AJ and STJ ROM are normal and pain free. MUSCLE STRENGTH: Dorsiflexion, plantarflexion, inversion, eversion are 5/5 b/l. PAIN: pain with palpation to the right 2nd digit, most at the proximal phalanx. Mild tenderness at the 2nd MTPJ dorsally and plantarly DEFORMITY: mild lateral deviation of R 2nd digit Skin: General: Skin is [...] Comments: Light touch sensation intact XR foot 1 or 2 views right Imaging Result: 2 views foot: AP and MO of the right foot were taken and compared to the views taken of the same foot on 11/28/24. They show complete oblique fracture of 2nd proximal phalanx. There is mild widening at the fracture line noted on AP view. Mild dorsal angulation of the distal portion of the proximal phalanx. New, mild lateral angulation of the distal portion of the proximal phalanx. Alignment is still satisfactory. Assessment/Plan ICD-10-CM 1. Closed fracture of phalanx of right second toe with routine healing, subsequent encounter S92.501D XR foot 1 or 2 views right 2. Injury of second toe, right, subsequent encounter S99.921D 3. Pain of toe of right foot M79.674 Patient was examined and evaluated. Reviewed radiographic and clinical findings with the pt. The fracture line is slightly widened, alignment satisfactory. Explained that 3.5 weeks is not long enoughwith immobilization and that wearing the finger splint on the toe is likely irritating the digit. Recommended continued use of the cam walker and darryn splinting the 2nd digit to the 3rd. If 2nd toe pain continues, recommended he started period of immobilization with crutches. Prescription for crutches dispensed to him today. Will return to the office in 3 weeks for recheck and possibly new radiographs. [...] Care Team (Late st Contact Info) Description 01/16/2025 8:45 AM EDT Office Visit [facility] [address] [facility] [place] [address] Rachael Pittman, [place] [address] [place], [place] [phone] documented as of this encounter Procedures Procedure Name Priority Date/Time Associated Diagnosis Comments XR FOOT 1-2 VIEWS RIGHT Routine 12/24/2024 9:14 AM EDT Closed fracture of phalanx of right second toe with routine healing, subsequent encounter documented in this encounter Results * XR foot 1 or 2 views right (12/24/2024 9:14 AM EDT) Anatomical Region Laterality Modality Lower Extremities, Foot Right Radiogra [facility] Imaging Narrative 12/24/2024 9:53 AM EDT Imaging Result: 2 views foot: AP and MO of the right foot were taken and compared to the views taken of the same foot on 11/28/24. They show complete oblique fracture of 2nd proximal phalanx. There is mild widening at the fracture line noted on AP view. Mild dorsal angulation of the distal portion of the proximal phalanx. New, mild lateral angulation of the distal portion of the proximal phalanx. Alignment is still satisfactory. Rachael Pittman DPPayal IMG XR PROCEDURES Final Res ult documented in this encounter Visit Diagnoses Diagnosis Closed fracture of phalanx of right second toe with routine healing, subsequent encounter- Primary Injury of second toe, right, subsequent encounter Pain of toe of right foot documented in this encounter
--- OUTSIDE RECORDS SUMMARY | 2024-12-24 09:15 | XMS_ITS | Encounter Summary ---
Author Organization [facility] Address [address] [place] [address] Care Team Providers Care Director Of Marketing Google Performance Ads Name Role Phone Unavailable Primary Care Provider Unavailabl e Encounter Details Date Type Department Care Team (Late st Contact Info) Description 12/24/2024 9:15 AM EDT Ancillary Procedure [facility] [address] [place] [phone] Social History Tobacco Use Types Packs/Day Years [...] 01/16/2025 8:45 AM EDT Office Visit [facility] [address] [place] [address] Rachael Pittman, DPM [address] [place], [place] [phone] documented as of this encounter Procedures Procedure Name Priority Date/Time Associated Diagnosis Comments XR FOOT 1-2 VIEWS RIGHT Routine 12/24/2024 9:14 AM EDT Closed fracture of phalanx of right second toe with routine healing, subsequent encounter documented in this encounter Results * XR foot 1 or 2 views right (12/24/2024 9:14 AM EDT) Anatomical Region Laterality Modality Lower Extremities, Foot Right [facility] Imaging Narrative 12/24/2024 9:53 AM EDT Imaging [...] the proximal phalanx. Alignment is still satisfactory. us Rachael Pittman DPM IMG XR PROCEDURES Final Res ult documented in this encounter Visit Diagnoses Not on filedocumented in this encounter
--- OUTSIDE RECORDS SUMMARY | 2025-01-06 10:22 | XMS_ITS | Encounter Summary ---
Author Organization [facility] Address [address] [place] [address] Care Team Providers Care Seismic Observer Name Role Phone Unavailable Primary Care Provider Unavailabl e Encounter Details Date Type Department Care Team (Late st Contact Info) Description 12/24/2024 Bamboo flowsheet [facility] [address] [place] [address] Rachael Pittman DPM [address] [place], [place] [phone] Social History Tobacco Use Types Packs/Day Years [...] Office Visit [facility] [address] [place] [address] Rachael Pittman DPM [address] [place], [place] [address] documented as of this encounter Visit Diagnoses Not on filedocumented in this encounter
--- OUTSIDE RECORDS SUMMARY | 2025-01-06 10:22 | XMS_ITS | Encounter Summary ---
Author Organization [facility] Address [address] [place] [address] Care Team Providers Care Physician Underwriter Name Role Phone Cady Hilliard MD Primary Care Provider [phone] Source Comments In the event this information is protected by the Federal Confidentiality of Alcohol and Drug AbusePatient Records regulations: The Federal rules restrict any use of the information to criminally investigate or prosecute any alcohol or drug abuse patient.[facility] Encounter Details Date Type Department Care Team (Late st Contact Info) Description 12/16/2022 Patient Msg Dermatology [place] [address] [place] [phone] Tonya Marie MD [address] [place] [address] treatment of hives Social History Tobacco [...] is lower risk 9 09/16/2022 Data from: https://www.neighborhoodatlas.medicine.[facility].edu/. Last address used for calculation [address] 09/16/2022 Sex and Gender Information Value [...] Primary documented in this encounter Care Teams Physician Underwriter Relationship Specialty Start Date End Date Cady Hilliard MD PCP - General Gastroenterology 06/17/22 documented as of this encounter
--- OUTSIDE RECORDS SUMMARY | 2025-01-06 10:22 | XMS_ITS | Encounter Summary ---
Author Organization [facility] Address [address] [facility] [place] [address] Care Team Providers Care Rougher Helper Name Role Phone Unavailable Primary Care Provider Unavailabl e Encounter Details Date Type Department Care Team (Late st Contact Info) Description 11/07/2022 Abstract [facility] Weaver[facility]han [facility]at[facility] [address] [facility] [address] [place] [phone] Ángela Sheffield MD [address] [facility] [address] [place] [address] Social History Tobacco Use Types Packs/Day Years [...] Visit [facility] [address] [place] [address] Rachael Pittman, DPM [address] [place], [place] [address] documented as of this encounter Visit Diagnoses Not on filedocumented in this encounter
--- OUTSIDE RECORDS SUMMARY | 2025-01-06 10:22 | XMS_ITS | Encounter Summary ---
Author Organization [facility] Address [address] [place] [address] Care Team Providers Care Software Qa System Specialist Name Role Phone Cady Hilliard MD Primary Care Provider [phone] Source Comments In the event this information is protected by the Federal Confidentiality of Alcohol and Drug AbusePatient Records regulations: The Federal rules restrict any use of the information to criminally investigate or prosecute any alcohol or drug abuse patient.[facility] Encounter Details Date Type Department Care Team (Late st Contact Info) Description 09/15/2022 Patient Msg Gastroenterology [address] [phone] Provider, Ccf Appointment reminder Social History Tobacco [...] risk 9 09/16/2022 Data from: https://www.neighborhoodatlas.medicine.[facility]/. Last address used for calculation [address] [facility] 09/16/2022 Sex and Gender Information Value [...] on filedocumented in this encounter Care Teams Software Qa System Specialist Relationship Specialty Start Date End Date Cady Hilliard MD PCP - General Gastroenterology 06/17/22 documented as of this encounter
--- OUTSIDE RECORDS SUMMARY | 2025-01-06 10:22 | XMS_ITS | Encounter Summary ---
Author Organization [facility] Address [address] [facility] [place] [address] Care Team Providers Care President Finance Company Name Role Phone Unavailable Primary Care Provider Unavailabl e Encounter Details Date Type Department Care Team (Latest Contact Info) Description 12/23/2024 Travel Social History Tobacco Use Types Packs/Day [...] EDT Office Visit [facility] [address] [place] [address] Rachael Pittman, DPM [address] [place], [place] [address] documented as of this encounter Visit Diagnoses Not on filedocumented in this encounter
--- OUTSIDE RECORDS SUMMARY | 2025-01-06 10:22 | XMS_ITS | Encounter Summary ---
Author Organization [facility] Healthcare Address [address] [place] [address] Care Team Providers Care Associate Chemist Name Role Phone Unavailable Primary Care Provider Unavailabl e Encounter Details Date Type Department Care Team (Late st Contact Info) Description 10/30/2024 Abstract [facility] [address] [place] [address] Gagan Vicente DPM [address] [place], [place] [phone] Social History Tobacco Use Types Packs/Day Years [...] Office Visit [facility] [address] [place] [address] Rachael Pittman DPM [address] [place], [place] [address] documented as of this encounter Visit Diagnoses Not on filedocumented in this encounter
--- OUTSIDE RECORDS SUMMARY | 2025-01-06 10:22 | XMS_ITS | Clinical Summary ---
Author Organization [facility] Address [address] [place] [address] Care Team Providers Care Waste Specialist Name Role Phone Cady Hilliard MD Primary Care Provider [phone] Allergies Active Allergy Reactions Criticality Noted Date [...] is lower risk 9 09/16/2022 Data from: https://www.neighborhoodatlas.medicine.[facility].edu/. Last address used for calculation [address] [place] [address] 09/16/2022 Sex and Gender Information Value Date [...] [employer] [employer] [place] Care Teams Waste Specialist Relationship Specialty Start Date End Date Cady Hilliard MD PCP - General Gastroenterology 06/17/22
--- OUTSIDE RECORDS SUMMARY | 2025-01-06 10:22 | XMS_ITS | Encounter Summary ---
Author Organization [facility] Healthcare Address [address] [place] [address] Care Team Providers Care Video Game Developer Name Role Phone Unavailable Primary Care Provider Unavailabl e Encounter Details Date Type Department Care Team (Late st Contact Info) Description 09/25/2024 Abstract [facility] [address] [place] [address] Gagan Vicente DPM [address] [place], [place] [phone] Social History Tobacco Use Types Packs/Day Years [...] Office Visit [facility] [address] [place] [address] Rachael Pittman DPM [address] [place], [place] [address] documented as of this encounter Visit Diagnoses Not on filedocumented in this encounter
--- OUTSIDE RECORDS SUMMARY | 2025-01-06 10:22 | XMS_ITS | Encounter Summary ---
Author Organization [facility] Healthcare Address [address] [place] [address] Care Team Providers Care Circuit Court Judge Name Role Phone Unavailable Primary Care Provider Unavailabl e Encounter Details Date Type Department Care Team (Late st Contact Info) Description 10/29/2024 Abstract [facility] [address] [place] [address] Gagan Vicente DPM [address] [place], [place] [address] Social History Tobacco Use Types Packs/Day Years [...] Office Visit [facility] [address] [place] [address] Rachael Pittman DPM [address] [place], [place] [phone] documented as of this encounter Visit Diagnoses Not on filedocumented in this encounter
--- OUTSIDE RECORDS SUMMARY | 2025-01-06 10:22 | XMS_ITS | Encounter Summary ---
Author Organization [facility] tem Address [id number] [place] [address] Care Team Providers Care Hotel Superintendent Name Role Phone Addy Cornell MD Primary Care Provider [phone] Encounter Details Date Type Department Care Team (Late st Contact Info) Description 09/25/2020 Telephone [facility] - CT Imaging [address] [place] [address] Oliva Rothman RN Social History [...] on filedocumented in this encounter Care Teams Hotel Superintendent Relationship Specialty Start Date End Date Addy Cornell MD PCP - General Family Medicine 11/06/22 documented as of this encounter
--- OUTSIDE RECORDS SUMMARY | 2025-01-06 10:22 | XMS_ITS | Encounter Summary ---
Author Organization [facility] Address [address] [facility] [place] [address] Care Team Providers Care Jewelry Designer Name Role Phone Unavailable Primary Care Provider Unavailabl e Encounter Details Date Type Department Care Team (Latest Contact Info) Description 12/24/2024 Travel Social History Tobacco Use Types Packs/Day [...] Description 01/16/2025 8:45 AM EDT Office Visit [facility] [address] [place] [phone] Rachael Pittman, DPM [address] [place], [place] [id number] documented as of this encounter Visit Diagnoses Not on filedocumented in this encounter
--- OUTSIDE RECORDS SUMMARY | 2025-01-06 10:22 | XMS_ITS | Encounter Summary ---
Author Organization [facility] Address [address] [place] [address] Care Team Providers Care Cloth Cutter Name Role Phone Cady Hilliard MD Primary Care Provider [phone] Source Comments In the event this information is protected by the Federal Confidentiality of Alcohol and Drug AbusePatient Records regulations: The Federal rules restrict any use of the information to criminally investigate or prosecute any alcohol or drug abuse patient.[facility] Encounter Details Date Type Department Care Team (Late st Contact Info) Description 01/27/2023 Patient Msg Gastroenterology [address] [id number] Corey Kothari, Research Coordinator [address] [place], [place] [id number] Study Treatment of Cholestatic Pruritus in [...] is lower risk 9 09/16/2022 Data from: https://www.neighborhoodatlas.medicine.[facility].edu/. Last address used for calculation [address] 09/16/2022 Sex and Gender Information Value [...] on filedocumented in this encounter Care Teams Cloth Cutter Relationship Specialty Start Date End Date Cady Hilliard MD PCP - General Gastroenterology 06/17/22 documented as of this encounter
--- OUTSIDE RECORDS SUMMARY | 2025-01-06 10:22 | XMS_ITS | Clinical Summary ---
Author Organization [facility] tem Address [id number] [address] [place] [address] Care Team Providers Care Processing Spec Name Role Phone Addy Cornell MD Primary Care Provider [phone] Allergies Active Allergy Reactions Criticality Noted Date [...] Date Last Done Comments Depression Screening 1992 Tobacco Screening 1992 DTaP,Tdap and Td Vaccines (1 - Tdap) 1999 Adult BMI Screening 11/07/2023 11/06/2022 Influenza Vaccine 12/16/2024 Medical Devices Not on file Insurance [employer] MEDICAID Care Teams Processing Spec Relationship Specialty Start Date End Date Addy Cornell MD PCP - General Family Medicine 11/06/22
--- OUTSIDE RECORDS SUMMARY | 2025-01-06 10:22 | XMS_ITS | Clinical Summary ---
Author Organization [facility] Healthcare Address [address] [place] [address] Care Team Providers Care Physician Asst Name Role Phone Unavailable Primary Care Provider [...] daily as directed until complete 21 tablet 5 Active sennosides (Senokot) 8.6 MG tablet Take 8.6 mg by mouth in the morning and 8.6 mg in the evening. Active meloxicam (Mobic) 15 MG tabletIndicatio ns:Plantar fasciitis, right,Inflammat ory heel pain, right,Calcaneal spur, right,Difficult y walking Take 1 tablet (15 mg) by mouth in the morning. Take with meals. 1 tablet once daily with food as needed for comfort. 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 [address] [place] [address] Rachael Pittman DPM 12/24/2024 Travel 12/23/2024 Travel 12/06/2024 Telephone [facility] [address] [place] [address] Rachael Pittman DPM Advice Only (toes) 11/28/2024 9:20 AM EDT Ancillary Procedure [facility] [address] [place] [address] 11/28/2024 8:45 AM EDT Office Visit [facility] [address] [place] [address] Rachael Pittman, DPM Injury of second toe, right, initial encounter (Primary Dx); Closed fracture of phalanx of right second toe, initial encounter; Pain of toe of right foot 11/28/2024 [facility] [facility] flowsheet [facility] [address] [place] [address] Rachael Pittman, DPM 11/28/2024 Travel 11/27/2024 Travel 11/19/2024 Travel 10/30/2024 11:15 AM EDT Office Visit [facility] [address] [place] [address] Gagan Vicente, DPPayal Plantar fasciitis, right (Primary Dx); Inflammatory heel pain, right; Calcaneal spur, right; Difficulty walking 10/30/2024 Abstract [facility] [address] [place] [address] Gagan Vicente, LITAM 10/30/2024 Bamboo flowsheet [facility] [address] [place] [address] Gagan Vicente, [place] 10/30/2024 Travel 10/29/2024 Travel 10/29/2024 Telephone [facility] [address] [place] [address] Gagan Vicente DPM Advice Only (Custom orthotics) 10/29/2024 Abstract [facility] [address] [place] [address] Gagan Vicente, [place] 10/16/2024 2:45 PM EDT Office Visit [facility] [address] [place] [address] Gagan Vicente DPM Plantar fasciitis, right (Primary Dx); Inflammatory heel pain, right; Calcaneal spur, right; Difficulty walking 10/16/2024 Bamboo flowsheet [facility] [address] [place] [address] Gagan Vicente DPM 10/16/2024 Travel 10/15/2024 Travel from Last 3 Months Family History [...] Mass Index 23.11 12/24/2024 8:44 AM EDT Plan of Treatment Upcoming Encounters Date Type Department Care Team (Late st Contact Info) Description 01/16/2025 8:45 AM EDT Office Visit [facility] [address] [place] [address] Rachael Pittman DPM [address] [place], [place] [phone] Procedures Procedure Name Priority Date/Time Associated Diagnosis Comments XR FOOT 1-2 VIEWS RIGHT Routine 12/24/2024 9:14 AM EDT Closed fracture of phalanx of right second toe with routine healing, subsequent encounter XR FOOT 3+ VIEWS RIGHT Routine 11/28/2024 9:16 AM EDT Injury of second toe, right, initial encounter Closed fracture of phalanx of right second toe, initial encounter from Last 3 Months Results * XR foot 1 or 2 views right (12/24/2024 9:14 AM EDT) Anatomical Region Laterality Modality Lower Extremities, Foot Right Radiogra phic Imaging Narrative 12/24/2024 9:53 AM EDT Imaging [...] phalanx. Alignment is still satisfactory. Rachael Pittman DPM IMG XR PROCEDURES Final Res ult * XR foot 3+ views right (11/28/2024 [...] fragment of the proximal phalanx Rachael Pittman DPPayal IMG XR PROCEDURES Final Res ult from Last 3 Months Insurance [employer] MEDICAID [place]
--- OUTSIDE RECORDS SUMMARY | 2025-01-06 10:22 | XMS_ITS | Clinical Summary ---
Author Organization [facility] Address [address] [place] [address] Care Team Providers Care Service Center Specialist Name Role Phone Unavailable Primary Care Provider Unavailabl e Encounters Date Type Department Care Team Description 12/11/2024 Telephone [facility] [address] [place] [address] Edita Crarasco MA from Last 3 Months Social History Tobacco Use Types Packs/Day Years Used Date Smoking Tobacco: Never Assessed Sex and Gender Information Value Date Recorded Sex Assigned at Not on file Legal Sex Male 10:17 PM EDT Gender Identity Not on file Sexual Orientation Not on file Last Filed Vital Signs Vital Sign Reading Time Taken Comments Blood Pressure - - Pulse - - Temperature - - Respiratory Rate - - Oxygen Saturation - - Inhaled Oxygen Concentration - - Weight 68 kg (150 lb) 11/05/2018 2:51 PM EDT Height 177.8 cm (5' 10 ) 12/21/2018 3:09 PM EDT Body Mass Index 21.52 11/05/2018 2:51 PM EDT Plan of Treatment Upcoming Encounters Date Type Department Care Team (Late st Contact Info) Description 04/02/2025 3:30 PM EST Office Visit [facility] [address] [place] [address] Lex Hess MD [address] [facility] [address] [facility] [place] [address] Health Maintenance Due Date Last Done Comments Depression Screening 1992 Hepatitis B Vaccines (1 of 3 - 19+ 3-dose series) 1999 Pneumococcal Vaccine: Pediat rics (0 to 5 Years) and At-Risk Patients (6 to 64 Years) (1 of 2 - PCV) 1999 Adult Tetanus 2002 Influenza Vaccine (#1) 2024 Zoster Vaccines (1 of 2) 2030 HIB Vaccines Aged Out No longer eligi ble based on patient's age to complete this topic HPV Vaccines Aged Out No longer eligi ble based on patient's age to complete this topic IPV Vaccines Aged Out No longer eligi ble based on patient's age to complete this topic Meningococcal B Vaccine Aged Out No l onger eligible based on patient's age to complete this topic Meningococcal Vaccine Aged Out No supriya olivia eligible based on patient's age to complete this topic Rotavirus Vaccines Aged Out No longer eligible based on patient's age to complete this topic [place] [place] [address] MEDICAID
== END 2025-01-06 10:21 | disposition home or self-care (01) ==
PROVIDERS: PCP Family Medicine; Visit Provider Family Medicine
DX: K83.01 Primary sclerosing cholangitis (principal); G43.909 Migraine, unspecified, not intractable, without status migrainosus; I77.9 Disorder of arteries and arterioles, unspecified
CPT/HCPCS: 93880